=== PATIENT | female | born 1995 ===

== ENCOUNTER 2020-05-01 15:04 | Emergency (ER) | payer MEDICAID, SELFPAY ==
[2020-05-01 15:39] VITALS: BP 126/84; PULSE 77; RESP 16; TEMP 37.1; O2SAT 100; BMI 32.8
--- NOTE | 2020-05-01 16:30 | ED.GENADULT ---
HPI - General Adult General Chief complaint: General Medical Stated complaint: covid symptoms Time Seen by Provider: 05/01/20 16:30 History of Present Illness HPI narrative: Patient complains of 1 week of runny nose associated with loss of taste and smell, there is no cough no shortness of breath no fever Symptoms are mild and it has been 1 week duration and no prior treatment Related Data Allergies Allergy/AdvReac Type Severity Reaction Status Date / Time No Known Allergies Allergy Verified 05/01/20 15:42 [No Known Allergies*] Review of Systems Review of Systems: There is no headache no dizziness no confusion no cough no shortness breath no chest pain no abdominal pain no nausea no vomiting no diarrhea no rash no weakness Yes all other systems are reviewed and are negative PMFSH Past Medical History Source: nursing notes reviewed Medical History (Updated 05/01/20 @ 16:32 by NEAL Katz) No known health problems Social History Social History Alcohol intake: never Smoked in Last 30 Days: No Use of substances other than those prescribed or required for medical reasons: No Advance Directives: No Advance Directives Information Provided: Yes Physical Exam Vital Signs: Vital Signs: Last Vital Signs Temp 98.7 F 05/01/20 15:39 Pulse 77 05/01/20 15:39 Resp 16 05/01/20 15:39 BP 126/84 05/01/20 15:39 Pulse Ox 100 05/01/20 15:39 Body Mass Index 32.8 General appearance is A&O x3, comfortable, no acute distress, cooperative The eyes no redness no discharge The pharynx clear, well-hydrated no redness or exudate, voice is normal Neck is supple Chest clear to auscultation bilaterally, full equal symmetric breath sounds Heart no murmur Abdomen soft nontender Extremities no edema no tenderness Neuro no focal deficit Course Course Course Narrative: Patient was tested for COVID and advised that she very likely has COVID due to the decreased taste and smell Discharge Plan Discharge Clinical Impression: Acute viral syndrome Patient Disposition: Home, Self-Care Additional Instructions: You will get her COVID test results in 1-3 days, we will call you Return to ER any time any worse condition or concerns The COVID test can miss some cases and because you have no sense of taste or smell this is very likely a COVID infection so you may be contagious with COVID even if you have a negative test Interventions: ED Discharge Assessment Last Done: 05/01/20 17:42 Discharge Date/Time: 05/01/20 16:30
== END 2020-05-01 16:30 | disposition home or self-care (01) ==
PROVIDERS: Emergency Provider Emergency Medicine Emergency Medical Services; PCP Family Medicine
DX: B34.9 Viral infection, unspecified (principal); R43.8 Other disturbances of smell and taste; Z20.828 Contact with and (suspected) exposure to other viral communicable diseases
CPT/HCPCS: 99283; 99284; U0003

== ENCOUNTER 2021-01-20 14:33 | Outpatient (REF) | payer MEDICAID, SELFPAY ==
--- NOTE | ~2021-01-20 | XR_ITS ---
EXAMINATION: XR KNEE, LEFT CLINICAL INFORMATION: Injury. COMPARISON: 09/27/2017 TECHNIQUE: 4 views of the left knee. FINDINGS: There is no evidence of acute fracture or dislocation of the left knee. Left knee joint spaces are maintained. There is an exostosis/osteochondroma seen about the lateral aspect of the distal femoral bone at the metaphyseal-diaphyseal junction. No effusion. There is a rim calcified stable lucency seen within the proximal tibia. XR/XR knee LT 4V IMPRESSION: No acute change right knee. Stable exostosis of the distal femur. Stable benign-appearing lucency within the proximal tibia.
== END 2021-01-20 14:34 | disposition home or self-care (01) ==
LOC: HO.XRAY 14:33
PROVIDERS: PCP Family Medicine; Referring Provider Family Medicine; Visit Provider Emergency Medicine
DX: S89.92XA Unspecified injury of left lower leg, initial encounter (principal)
CPT/HCPCS: 73564

== ENCOUNTER 2022-04-02 13:02 | Emergency (ER) | payer MEDICAID, SELFPAY ==
--- NOTE | ~2022-04-02 | US_ITS ---
EXAMINATION: US OBSTETRICAL (BIOPHYSICAL PROFILE) CLINICAL INFORMATION: Decreased movement. 8 months . COMPARISON: None TECHNIQUE: Ultrasound of the pelvis is performed. Biophysical profile is performed over 30 minutes with assessment of breathing, gross body movement, tone, and qualitative amniotic fluid volume. Each matrix is scored 0 or 2, depending if the metric is present. Maximum total score possible is 8. Examination is not intended to assess for anomalies. FINDINGS: POSITION: Cephalic PLACENTA: Posterior. Grade 1-2 AMNIOTIC FLUID INDEX: 9.3 cm. 5th %ile for patient's gestational age is 7.7 cm. CARDIAC ACTIVITY: 172 beats per minute BIOPHYSICAL PROFILE: Motion: 2 Tone: 2 Breathin Amniotic Fluid: 2 Total score: 8 out of 8 US/US OB biophysical profile IMPRESSION: 1. Single intrauterine gestation in cephalic position with posterior placenta. 2. Total biophysical score is 8/8 (scale 0-8). 3. Amniotic fluid index 9.3 cm. 4. cardiac activity 172 beats per minute.
[2022-04-02 14:26] VITALS: BP 133/69; PULSE 86; RESP 18; TEMP 36.7; O2SAT 98; BMI 40.4
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
[2022-04-02 15:53] VITALS: BP 137/68; PULSE 72; RESP 18; TEMP 37; O2SAT 99
== END 2022-04-02 16:29 | disposition home or self-care (01) ==
PROVIDERS: Emergency Provider Student in an Organized Health Care Education/Training Program; PCP Family Medicine
DX: O26.93 Pregnancy related conditions, unspecified, third trimester (principal); Z3A.29 29 weeks gestation of pregnancy
CPT/HCPCS: 76819; 99282; 99284

== ENCOUNTER 2022-07-16 17:13 | Emergency (ER) | payer MEDICAID, SELFPAY ==
--- NOTE | 2022-07-16 17:24 | ED_ITS ---
HPI - General Adult General Chief complaint: Skin/Abscess/Foreign Body Stated complaint: Hives on neck, chest, abdominal region Time Seen by Provider: 07/16/22 17:30 Source: patient and block greaser Mode of arrival: ambulatory Limitations: language barrier History of Present Illness HPI narrative: Patient is a 27 year old assigned female at with no reported medical history presenting to the emergency department today with a rash to her neck, bilateral inner arms, and under her breasts. Patient states that a few days ago she developed an itchy rash to her bilateral inner arms, neck, and under both of her breasts. Patient denies any dizziness, lightheadedness, abdominal pain, nausea, vomiting, fever, chills, blurry vision, double vision, loss of vision, chest pain, difficulty breathing, shortness of breath, back pain, night sweats, pain with urination, increased urinary frequency, increased urinary urgency, blood in her urine or stool, syncope or a near syncopal episode, recent trauma or falls, bowel incontinence, bladder incontinence, bowel retention, bladder retention, or any other complaints at this time. Patient denies any environmental changes, soap changes, or recent medication use. Onset (ago): day(s) Severity: mild Severity scale (1-10): 2 Relieving factors: none Exacerbating factors: none Associated symptoms: rash Treatments prior to arrival: none Related Data Previous Rx's Medication Instructions Recorded prednisone 20 mg tablet 20 mg PO DAILY 7 days #7 tabs 07/16/22 Allergies Allergy/AdvReac Type Severity Reaction Status Date / Time No Known Allergies Allergy Verified 04/02/22 14:26 [No Known Allergies*] Review of Systems Constitutional: Constitutional: Reports no additional constitutional complaints, Denies chills, Denies fever(s) and Denies night sweats Eyes: Eyes: Reports no additional eye complaints, Denies blurry vision, Denies change in vision, Denies diplopia, Denies eye discharge, Denies loss of vision and Denies eye pain ENT: Denies dizziness Cardiovascular: Cardiovascular: Reports no additional cardiovascular complaints, Denies chest pain, Denies lightheadedness, Denies Loss of Consciousness and Denies dyspnea Respiratory: Respiratory: Reports no additional respiratory complaints and Den ies dyspnea Gastrointestinal: Gastrointestinal: Reports no additional gastrointestinal complaints, Denies abdominal pain, Denies melena, Denies hematochezia, Denies change in bowel habits and Denies change in stool character Genitourinary: Genitourinary: Denies hematuria, Denies urinary frequency, Denies dysuria, Denies urinary incontinence, Denies urinary hesitancy and Denies urinary urgency Musculoskeletal: Musculoskeletal: Reports no additional musculoskeletal complaints, Denies numbness and Denies tingling Integumentary/Breasts: Comments: itching rash to the bilateral neck, bilateral inner elbows, and under both breasts Neurologic: Denies dizziness, Denies loss of vision, Denies numbness and Denies tingling Psychiatric: Psychiatric: Reports no additional psychiatric complaints Endocrine: Endocrine: Reports no additional endocrine complaints Hematologic/Lymphatic: Hematologic/Lymphatic: Reports no additional hematologic/lymphatic complaints Allergic/Immunologic: Allergic/Immunologic: Reports no additional allergic/immunologic complaints [facility] Past Medical History Attestation statement: The following information was validated with the patient. Source: old records reviewed and nursing notes reviewed Medical History No known health problems Social History Social History Alcohol intake: never Advance Directives: No Advance Directives Information Provided: No Physical Exam ED Vital Signs: Vital Signs - 24 hr 07/16/22 17:27 Temperature 97.0 F Pulse Rate 69 Respiratory Rate 18 Blood Pressure 103/66 Pulse Oximetry 98 Oxygen Delivery Method Room Air BMI result Body Mass Index 44.2 Const General: cooperative, no acute distress, alert and awake Nutritional Appearance: well nourished Orientation/consciousness: patient oriented x3 Limitations: no limitations [facility] Head: Yes normal to inspection and Yes atraumatic Ears: hearing grossly normal bilaterally and external ears normal General nose exam: Normal external nose present, no nasal discharge noted and no epistaxis Face and sinus: Yes normal facial exam, No abrasion and No laceration Mouth: Normal oral and palatal mucosa present, no drooling and no muffled voice Eyes General: appearance normal, both eyes and all related structures Periorbital: periorbital findings normal Eyelids: Yes eyelids normal Conjunctivae: conjunctivae normal Pupils: Equal, round and reactive pupils present EOM: EOMs intact bilaterally Neck Neck: Yes normal visual inspection, Yes full ROM and Yes no lymphadenopathy Chest Chest palpation & inspection: normal inspection of the chest Resp Effort & Inspection: normal respiratory effort and able to speak in complete sentences Auscultation: clear to auscultation bilaterally Cardio Rate: regular rate Rhythm: regular rhythm GI Inspection: Yes normal to inspection Palpation (GI): Soft to palpation, not firm, nontender, no guarding and not rigid Skin Other: patient has eczematous rash to the bilateral sides of the neck, bilateral inner elbows, and under both breasts Neuro General: patient oriented x3 and moves all extremities Cranial nerves: Yes Equal, round and reactive pupils present Cognition (Neuro): normal cognition Motor exam (neuro): 5/5 motor strength present throughout Sensory Exam: Normal double simultaneous stimulation for sensation Coordination: [id number] test normal Extrem General: Yes normal to inspection, Yes full ROM and Yes capillary refill normal Psych Appearance: grossly normal Mental Status: mental status grossly normal Affect: normal affect Attitude: cooperative Thought process: Normal thought process present Thought content: Normal thought content present Insight: Good insight present (Psych) Medical Decision Making Medical Decision Making MDM Narrative: Patient is a 27 year old assigned female at with no reported medical history presenting to the emergency department today with a rash. Patient's physical exam showed a rash to the bilateral inner elbows, both sides of the neck, and under both breasts. I explained my physical exam findings to the patient. I answered all questions asked by the patient. I stressed the importance of the patient taking her medication as prescribed. I stressed the importance of the patient following up with her primary care provider. I stressed the importance of the patient returning to the emergency department immediately if her symptoms were to worsen or if she were to develop any dizziness, shortness of breath, difficulty breathing, chest pain, blurry vision, loss of vision, nausea, vomiting, abdominal pain, fever, chills, back pain, or any other complaints. Patient verbalized agreement and understanding with this treatment plan and discharge. Differential Diagnosis Differential Diagnoses: The differential diagnosis associated with the presentation includes eczema Discharge Plan Discharge Clinical Impression: Eczema Patient Disposition: Home, Self-Care Instructions: Dermatitis (ED) Additional Instructions: Follow up with your primary care provider and a media reconciliation specialist. Return to the emergency department immediately if your symptoms worsen or if you develop any dizziness, shortness of breath, difficulty breathing, chest pain, blurry vision, loss of vision, nausea, vomiting, abdominal pain, fever, chills, back pain, or any other complaints. Megan un seguimiento con baxter proveedor de atenci?n primaria y un dermat?logo. Regrese a la xavier de emergencias de inmediato si gloria s?ntomas empeoran o si presenta mareos, dificultad para respirar, dolor de pecho, visi?n borrosa, p?rdida de la visi?n, n?useas, v?mitos, dolor abdominal, fiebre, escalofr?os, dolor de espalda o cualquier otras quejas. Prescriptions: New prednisone 20 mg tablet 20 mg PO DAILY 7 Days Qty: 7 0RF Referrals: [facility] [Provider Group] (Call to establish and follow up with a media reconciliation specialist. Llame para establecer y hacer un seguimiento con un dermat?logo.) La Nena Alvarez MD [Primary Care Provider] - Interventions: ED Discharge Assessment Last Done: 07/16/22 17:32 Discharge Date/Time: 07/16/22 17:51 Print Language: [place]
[2022-07-16 17:27] VITALS: BP 103/66; PULSE 69; RESP 18; TEMP 36.1; O2SAT 98; BMI 44.2
== END 2022-07-16 17:51 | disposition home or self-care (01) ==
LOC: HO.ED 17:36
PROVIDERS: Emergency Provider Emergency Medicine; PCP General Practice
DX: L30.9 Dermatitis, unspecified (principal)
CPT/HCPCS: 99282; 99283

== ENCOUNTER 2022-08-07 12:01 | Emergency (ER) | payer MEDICAID, SELFPAY ==
--- NOTE | 2022-08-07 12:55 | ED_ITS ---
HPI - Headache General Chief Complaint: Upper Respiratory Symptoms Stated Complaint: head pressure sore throat Time Seen by Provider: 08/07/22 13:48 Related Data Previous Rx's Medication Instructions Recorded prednisone 20 mg tablet 20 mg PO DAILY 7 days #7 tabs 07/16/22 ibuprofen 600 mg tablet 600 mg PO Q6H PRN fever or pain 08/07/22 #20 tabs Allergies Allergy/AdvReac Type Severity Reaction Status Date / Time No Known Allergies Allergy Verified 04/02/22 14:26 [No Known Allergies*] [facility] Past Medical History Medical History No known health problems Social History Social History Alcohol intake: never Advance Directives: No Advance Directives Information Provided: No Physical Exam Vital Signs: Vital Signs: Last Vital Signs Temp 97.5 F 08/07/22 12:56 Pulse 78 08/07/22 12:56 Resp 16 08/07/22 12:56 BP 112/70 08/07/22 12:56 Pulse Ox 98 08/07/22 12:56 O2 Del Method 08/07/22 12:56 BMI result Body Mass Index 35.4 Course Course Course Narrative: This is rapid medical exam. Deferred additional HPI, ROS, PE to primary provider. 27 yo female here with headache, sore throat x 1 week. Will obtain strep testing, testing for flu/covid/rsv. VSS Medications Administered Discontinued Medications Generic Name Dose Route Start Last Admin Trade Name Freq PRN Reason Stop Dose Admin Dexamethasone 10 mg 08/07/22 14:52 08/07/22 15:01 Dexamethasone 2 Mg Tablet PO 08/07/22 14:53 10 mg ONCE ONE Administration Ibuprofen 600 mg 08/07/22 14:52 08/07/22 15:01 Ibuprofen 600 Mg Tablet PO 08/07/22 14:53 600 mg ONCE ONE Administration Medical Decision Making Lab Data Labs: Lab Results 08/07/22 08/07/22 Range/Units 13:20 13:20 Influenza Type A (PCR) NEGATIVE (Negative) Influenza Type B (PCR) NEGATIVE (Negative) RSV RNA Qual (PCR) NEGATIVE (Negative) SARS-CoV-2 RNA (RT-PCR) NEGATIVE (Negative) S. pyogenes GrpA JAVIER Negative (Negative) Discharge Plan Discharge Clinical Impression: Viral pharyngitis Patient Disposition: Home, Self-Care Additional Instructions: Testing was negative for flu COVID and strep We gave 1 dose of steroid which often helps throat pain and inflammation within 1 day Otherwise Tylenol or Motrin as needed Breathing steam, warm fluids, honey are all helpful for sore throat Return any time any worse condition or any concerns Prescriptions: New ibuprofen 600 mg tablet 600 mg PO Q6H PRN (Reason: fever or pain) Qty: 20 0RF No Action prednisone 20 mg tablet 20 mg PO DAILY 7 Days Qty: 7 0RF Interventions: ED Discharge Assessment Last Done: 08/07/22 15:03 Discharge Date/Time: 08/07/22 15:03
[2022-08-07 12:56] VITALS: BP 112/70; PULSE 78; RESP 16; TEMP 36.4; O2SAT 98; BMI 35.4
[2022-08-07 13:51] LABS: IDNOW Serial# 6674DD1D
[2022-08-07 13:52] LABS: Strep A Nucleic Acid Negative (Negative)
[2022-08-07 14:10] LABS: Influenza A PCR NEGATIVE (Negative); Influenza B PCR NEGATIVE (Negative); Resp Syncy Virus RNA Qual PCR NEGATIVE (Negative); SARS COV2 PCR INHOUSE NEGATIVE (Negative)
--- NOTE | 2022-08-07 14:53 | ED.URI ---
HPI - URI/Sore Throat General Chief Complaint: Upper Respiratory Symptoms Stated Complaint: head pressure sore throat Time Seen by Provider: 08/07/22 13:48 History of Present Illness HPI Narrative: Patient complains of sore throat, waxing and waning gradual onset mild headache, and some body aches over the last week Headache is intermittent and mild described as pressure it is gradual onset, no thunderclap, there is no associated weakness or confusion or vision change, no stiff neck no trauma The sore throat makes it painful to swallow but she is able to swallow and hydrate There is no nausea no vomiting no cough with sputum no chest pain no runny nose Related Data Previous Rx's Medication Instructions Recorded prednisone 20 mg tablet 20 mg PO DAILY 7 days #7 tabs 07/16/22 ibuprofen 600 mg tablet 600 mg PO Q6H PRN fever or pain 08/07/22 #20 tabs Allergies Allergy/AdvReac Type Severity Reaction Status Date / Time No Known Allergies Allergy Verified 04/02/22 14:26 [No Known Allergies*] [facility] Past Medical History Source: nursing notes reviewed Medical History No known health problems Social History Social History Alcohol intake: never Advance Directives: No Advance Directives Information Provided: No Physical Exam Vital Signs: Vital Signs: Last Vital Signs Temp 97.5 F 08/07/22 12:56 Pulse 78 08/07/22 12:56 Resp 16 08/07/22 12:56 BP 112/70 08/07/22 12:56 Pulse Ox 98 08/07/22 12:56 O2 Del Method 08/07/22 12:56 BMI result Body Mass Index 35.4 General appearance is no acute distress The eyes anicteric no pallor no redness no discharge The sinuses nontender, the nose is not congested The pharynx is clear without redness swelling or exudate, membranes are moist Neck is supple Chest clear to auscultation bilateral Heart no murmur Abdomen soft nontender Extremities full range of motion x4 Skin no rash Course Course Course Narrative: Patient tested negative for flu negative for RSV negative for COVID and negative for strep She is well appearing tolerating p.o. she is given a dose of steroid for her sore throat and Motrin and well-appearing patient tolerating p.o. is discharged Medical Decision Making Lab Data Labs: Lab Results 08/07/22 08/07/22 Range/Units 13:20 13:20 Influenza Type A (PCR) NEGATIVE (Negative) Influenza Type B (PCR) NEGATIVE (Negative) RSV RNA Qual (PCR) NEGATIVE (Negative) SARS-CoV-2 RNA (RT-PCR) NEGATIVE (Negative) S. pyogenes GrpA JAVIER Negative (Negative) Discharge Plan Discharge Clinical Impression: Viral pharyngitis Patient Disposition: Home, Self-Care Additional Instructions: Testing was negative for flu COVID and strep We gave 1 dose of steroid which often helps throat pain and inflammation within 1 day Otherwise Tylenol or Motrin as needed Breathing steam, warm fluids, honey are all helpful for sore throat Return any time any worse condition or any concerns Prescriptions: New ibuprofen 600 mg tablet 600 mg PO Q6H PRN (Reason: fever or pain) Qty: 20 0RF No Action prednisone 20 mg tablet 20 mg PO DAILY 7 Days Qty: 7 0RF
[2022-08-07] MEDS: dexAMETHasone 2 MG TABLET 10 MG PO (15:01)
[2022-08-07] MEDS: Ibuprofen 600 MG TABLET PO (15:01)
== END 2022-08-07 15:03 | disposition home or self-care (01) ==
PROVIDERS: Nurse Practitioner Family; Emergency Provider Emergency Medicine; PCP General Practice
DX: J02.9 Acute pharyngitis, unspecified (principal); Z20.822 Contact with and (suspected) exposure to COVID-19; Z20.828 Contact with and (suspected) exposure to other viral communicable diseases
CPT/HCPCS: 0241U; 87651; 99283; J8540

== ENCOUNTER 2022-08-29 16:32 | Emergency (ER) | payer MEDICAID, SELFPAY ==
--- NOTE | ~2022-08-29 | XR_ITS ---
EXAMINATION: XR KNEE, RIGHT CLINICAL INFORMATION: Pain COMPARISON: None TECHNIQUE: Four views of the right knee. FINDINGS: Bones and soft tissues are normal. No fracture or significant joint effusion. Alignment is anatomic. Joint spaces are well maintained. No abnormal soft tissue calcification. XR/XR knee RT 3V IMPRESSION: Normal right knee.
[2022-08-29 16:34] VITALS: BP 120/71; PULSE 95; RESP 18; TEMP 37.2; O2SAT 99; BMI 36.8
--- NOTE | 2022-08-29 16:36 | ED.EXTPRO ---
HPI - Extremity Problem General Chief complaint: Extremity Problem <NEAL Valle Last Filed: 08/29/22 16:37> Stated complaint: 3 wks w/ knee pain <NEAL Valle Last Filed: 08/29/22 16:37> Time Seen by Provider: 08/29/22 16:49 <NEAL Valle Last Filed: 08/29/22 16:37> Source: patient <NEAL Acevedo Last Filed: 08/29/22 18:12> Mode of arrival: ambulatory <NEAL Acevedo Last Filed: 08/29/22 18:12> History of Present Illness HPI Narrative: 27-year-old female with no significant past medical history presenting to the ED complaining of right knee pain x3 weeks. Reports remote history of trauma about 10 years ago, denies new or recent injury/fall. Pain worse with ambulation/movement. Denies numbness, tingling, weakness, fever <NEAL Acevedo Last Filed: 08/29/22 18:12> MD Complaint: extremity pain <NEAL Acevedo Last Filed: 08/29/22 18:12> Onset (ago): week(s) <NEAL Acevedo Last Filed: 08/29/22 18:12> Related Data Home medications: Previous Rx's Medication Instructions Recorded prednisone 20 mg tablet 20 mg PO DAILY 7 days #7 tabs 07/16/22 ibuprofen 600 mg tablet 600 mg PO Q6H PRN fever or pain 08/07/22 #20 tabs <NEAL Valle Last Filed: 08/29/22 16:37> Allergies/Adverse reactions: Allergies Allergy/AdvReac Type Severity Reaction Status Date / Time No Known Allergies Allergy Verified 04/02/22 14:26 [No Known Allergies*] <NEAL Valle Last Filed: 08/29/22 16:37> Review of Systems Review of Systems: Constitutional: No Fever, No Chills ENT/Mouth: No Ear Pain, No Nasal Congestion, No sore throat, No Rhinorrhea, No Swallowing Difficulty Cardiovascular: No Chest Pain, No SOB Respiratory: No Cough, No Sputum, No Wheezing Gastrointestinal: No Nausea, No Vomiting, No Diarrhea, No Constipation, No Abdominal pain Genitourinary: No Dysuria, No Urinary Frequency, No Hematuria, No Flank Pain Musculoskeletal: + joint pain, No Myalgias, + Joint Swelling Skin: No Skin Lesions, No rash Neuro: No Weakness, No Numbness, No Paresthesias <NAEL Acevedo - Last Filed: 08/29/22 18:12> Yes all other systems are reviewed and are negative <NEAL Acevedo - Last Filed: 08/29/22 18:12> Constitutional: Constitutional: Reports as per HPI <NEAL Acevedo - Last Filed: 08/29/22 18:12> [facility] Past Medical History Attestation statement: The following information was validated with the patient. <NEAL Acevedo - Last Filed: 08/29/22 18:12> Medical History: Medical History No known health problems <NEAL Valle - Last Filed: 08/29/22 16:37> Social History Social History: Social History Alcohol intake: never Advance Directives: No Advance Directives Information Provided: No <NEAL Valle - Last Filed: 08/29/22 16:37> Physical Exam Vital Signs: Vital Signs: Last Vital Signs Temp 98.9 F 08/29/22 16:34 Pulse 95 08/29/22 16:34 Resp 18 08/29/22 16:34 BP 120/71 08/29/22 16:34 Pulse Ox 99 08/29/22 16:34 O2 Del Method 08/29/22 16:34 BMI result Body Mass Index 36.8 <NEAL Valle - Last Filed: 08/29/22 16:37> Vital Signs: Last Vital Signs Temp 98.9 F 08/29/22 16:34 Pulse 95 08/29/22 16:34 Resp 18 08/29/22 16:34 BP 120/71 08/29/22 16:34 Pulse Ox 99 08/29/22 16:34 O2 Del Method 08/29/22 16:34 BMI result Body Mass Index 36.8 <NEAL Acevedo - Last Filed: 08/29/22 18:12> Const: General: cooperative, healthy appearing and no acute distress <NEAL Acevedo - Last Filed: 08/29/22 18:12> Orientation/consciousness: patient oriented x3 <NEAL Acveedo - Last Filed: 08/29/22 18:12> Limitations: no limitations <NEAL Acevedo - Last Filed: 08/29/22 18:12> HEENT: Head: Yes normal to inspection and Yes atraumatic <Alma Frazier PA - Last Filed: 08/29/22 18:12> Ears: hearing grossly normal bilaterally <NEAL Acevedo - Last Filed: 08/29/22 18:12> General nose exam: Normal external nose present <NEAL Acevedo - Last Filed: 08/29/22 18:12> Face and sinus: Yes normal facial exam <NEAL Acevedo - Last Filed: 08/29/22 18:12> Eyes: General: appearance normal, both eyes and all related structures <NEAL Acevedo - Last Filed: 08/29/22 18:12> EOM: EOMs intact bilaterally <NEAL Acevedo - Last Filed: 08/29/22 18:12> Neck: Neck: Yes normal visual inspection and Yes no meningeal signs <NEAL Acevedo - Last Filed: 08/29/22 18:12> Resp: Effort & Inspection: normal respiratory effort and no respiratory distress <NEAL Acevedo - Last Filed: 08/29/22 18:12> Cardio: Rate: regular rate <NEAL Acevedo - Last Filed: 08/29/22 18:12> Peripheral pulses: dorsalis pedis present <NEAL Acevedo - Last Filed: 08/29/22 18:12> Skin: Rashes: no rashes <NEAL Acevedo - Last Filed: 08/29/22 18:12> Wounds: no wounds <NEAL Acevedo - Last Filed: 08/29/22 18:12> Neuro: General: patient oriented x3, tone normal and no meningeal signs <NEAL Acevedo - Last Filed: 08/29/22 18:12> Gait exam (Neuro): Normal gait present <NEAL Acevedo Last Filed: 08/29/22 18:12> Extrem: Other: Right knee without noted deformity/swelling/erythema, warmth or ecchymosis. No crepitus. Diffusely tender to palpation. Limited flexion secondary to pain. Extension intact. Neurovascular intact distally. <NEAL Acevedo - Last Filed: 08/29/22 18:12> General: Yes normal to inspection <NEAL Acevedo Last Filed: 08/29/22 18:12> Course Course Course Narrative: RME - 27 y/o female presents to the ER for evaluation of 3 weeks of nontraumatic right knee pain, that has been getting worse causing her to limp. It is causing her to have back pain as well. Entire knee hurts. No posterior knee pain or leg swelling. Plan: Xr right knee <NEAL Vlale - Last Filed: 08/29/22 16:37> RME - 27 y/o female presents to the ER for evaluation of 3 weeks of nontraumatic right knee pain, that has been getting worse causing her to limp. It is causing her to have back pain as well. Entire knee hurts. No posterior knee pain or leg swelling. Plan: Xr right knee 1804--XR knee RT 3V IMPRESSION: Normal right knee. > Dale wrap applied for comfort and stability. Patient not currently . Recommended PCP/orthopedic follow-up Results discussed with patient including worrisome signs and symptoms and strict return precautions, and when to return to the emergency department. They verbalized understanding and feel safe for discharge at this time. <NEAL Acevedo Last Filed: 08/29/22 18:12> Medical Decision Making Medical Decision Making MDM Narrative: 27-year-old female with no significant past medical history presenting to the ED complaining of right knee pain x3 weeks. On exam vital signs stable, ambulating with antalgic gait, physical exam as above. Concern for sprain vs meniscal/tendon or ligamental injury. Low suspicion for fracture. No evidence of septic joint/arthritis Plan: X-rays Please refer to course for remaining clinical decision making, interpretation of labs/imaging results, and discussions with consultants and/or family members. <NEAL Acevedo - Last Filed: 08/29/22 18:12> Differential Diagnosis Differential Diagnoses: The differential diagnosis associated with the presentation includes <NEAL Acevedo - Last Filed: 08/29/22 18:12> As above <NEAL Acevedo - Last Filed: 08/29/22 18:12> Admission/Observation Consideration of admission/observation: Escalation of care including admission/observation considered <NEAL Acevedo - Last Filed: 08/29/22 18:12> Lab Data MDM Lab Attestation statement: I reviewed the patient's lab results. <NEAL Acevedo - Last Filed: 08/29/22 18:12> Radiology Impression Discussion of test interpretation with radiology: I have reviewed the radiologist's reading. <NEAL Acevedo - Last Filed: 08/29/22 18:12> External Record Review External record reviewed: Inpatient record, Office record, Outpatient record, Prior outpatient labs, Prior outpatient radiology, Primary care record and Outside ED record <NEAL Acevedo - Last Filed: 08/29/22 18:12> Discharge Plan Discharge Clinical Impression: Acute knee pain <NEAL Valle - Last Filed: 08/29/22 16:37> Patient Disposition: Home, Self-Care <NEAL Valle - Last Filed: 08/29/22 16:37> Instructions: Knee Pain (ED) <NEAL Valle - Last Filed: 08/29/22 16:37> Additional Instructions: Your x-ray is unremarkable Wear Dale wrap as needed for comfort and stability Ice and elevate. Naproxen as an anti-inflammatory/pain medication, take with food Addition take Tylenol Follow-up with her doctor and Orthopedics <NEAL Valle - Last Filed: 08/29/22 16:37> Prescriptions: No Action prednisone 20 mg tablet 20 mg PO DAILY 7 Days Qty: 7 0RF ibuprofen 600 mg tablet 600 mg PO Q6H PRN (Reason: fever or pain) Qty: 20 0RF <NEAL Valle - Last Filed: 08/29/22 16:37> Referrals: [facility] [Provider Group] La Nena Alvarez MD [Primary Care Provider] - <NEAL Valle - Last Filed: 08/29/22 16:37>
--- NOTE | 2022-08-29 18:02 | MHC.EDTECH ---
Brought patient sandwich and apple juice.
== END 2022-08-29 18:45 | disposition home or self-care (01) ==
PROVIDERS: Emergency Provider Emergency Medicine; PCP General Practice
DX: M25.561 Pain in right knee (principal)
CPT/HCPCS: 73562; 99282

== ENCOUNTER 2023-01-05 14:44 | Outpatient (REF) | payer MEDICAID, SELFPAY ==
[2023-01-05 17:03] LABS: HCG Quantitative < 2 mIU/mL
== END 2023-01-05 14:45 | disposition home or self-care (01) ==
LOC: HO.HHCL 14:44
PROVIDERS: Visit Provider Internal Medicine
DX: N92.6 Irregular menstruation, unspecified (principal)
CPT/HCPCS: 36415; 84702

== ENCOUNTER 2023-03-24 15:11 | Outpatient (REF) | payer MEDICAID, SELFPAY | END 2023-03-24 15:12 | disposition home or self-care (01) | LOC: HO.HHCX 15:11 | PROVIDERS: Visit Provider Student in an Organized Health Care Education/Training Program | DX: R22.42 Localized swelling, mass and lump, left lower limb (principal) | CPT/HCPCS: 73610 ==

== ENCOUNTER 2023-05-25 14:02 | Outpatient (REF) | payer MEDICAID, SELFPAY ==
--- NOTE | ~2023-05-25 | US_ITS ---
EXAMINATION: US EXTREMITY NONVASCULAR, LEFT CLINICAL INFORMATION: Soft tissue mass posterior to the ankle COMPARISON: Ankle radiographs 03/24/2023 TECHNIQUE: Sonographic evaluation of the soft tissues of the left posterior ankle was performed. FINDINGS: A 4 x 6.2 x 1 cm complex collection of fluid and soft tissue which appears to be contiguous with the tendon, presumed to reflect the Achilles tendon. US/US extremity nonvascular IMPRESSION: A 6.2 cm complex collection of fluid and soft tissue which appears to be contiguous with the tendon, presumed to reflect the Achilles tendon. This could reflect a complex fluid collection such as a hematoma in the setting of underlying Achilles tendon injury/tendinitis in the appropriate clinical setting, though a complex mixed cystic and solid mass could have this appearance. Recommend correlation with contrast-enhanced MR ankle.
== END 2023-05-25 14:03 | disposition home or self-care (01) ==
LOC: HO.US 14:02
PROVIDERS: PCP General Practice; Visit Provider Student in an Organized Health Care Education/Training Program
DX: R22.42 Localized swelling, mass and lump, left lower limb (principal)
CPT/HCPCS: 76882

== ENCOUNTER 2023-07-16 23:37 | Emergency (ER) | payer MEDICAID, SELFPAY ==
--- NOTE | ~2023-07-16 | CT_ITS ---
EXAMINATION: CT ABDOMEN AND PELVIS WITH CONTRAST CLINICAL INFORMATION: Right-sided tenderness, nausea/vomiting COMPARISON: 06/07/2017 TECHNIQUE: Multidetector volumetric images were obtained from the superior aspect of the liver through the pubic symphysis following administration 85 mL of Omnipaque 350 intravenous contrast. Sagittal and coronal reformatted images were obtained on the technologist's workstation. Oral contrast: No This CT examination was performed using dose optimization techniques as appropriate, variously including the following: *Automated exposure control *Adjustment of mA and/or kV according to patient size (this includes techniques or standardized protocols for targeted exams where dose is matched to indication/reason for exam; i.e. extremities or head) *Use of iterative reconstruction technique DLP: 570 mGy-cm FINDINGS: LUNG BASES: The visualized lung bases are unremarkable. LIVER, GALLBLADDER, AND BILIARY TREE: The liver is normal in size, shape, and attenuation. A small focal region of hypoattenuation adjacent to the falciform ligament could be due to focal fatty infiltration or alterations in hepatic perfusion. No intrahepatic biliary ductal dilatation. Gallbladder appears partially contracted. Low-density gallstones are suspected. No significant gallbladder wall thickening is seen though assessment is suboptimal on CT. PANCREAS: Unremarkable. SPLEEN: Unremarkable. ADRENAL GLANDS: Unremarkable. KIDNEYS AND URETERS: Bilateral nephrograms are symmetric. No hydronephrosis or obstructing calculus identified. BLADDER: Mildly distended and grossly unremarkable. GASTROINTESTINAL TRACT: No evidence of bowel obstruction. No significant bowel wall thickening is seen. Fluid is present within some segments of the colon, a finding which can be associated with diarrhea. Appendix is suspected to be collapsed. Trace pelvic free fluid noted. No free air is seen. ABDOMINAL WALL: No significant hernia is appreciated. LYMPH NODES: Normal. VASCULAR: Unremarkable. PELVIC VISCERA: Unremarkable. OSSEOUS STRUCTURES: Screws are redemonstrated in the intertrochanteric region of the right femur with adjacent heterotopic ossification. There is also heterotopic ossification adjacent to the proximal left femoral shaft. Degenerative changes of the hips. CT/CT abdomen pelvis w IV con IMPRESSION: 1. Low-density gallstones are suspected. No significant gallbladder wall thickening is seen, though assessment is suboptimal on CT. Given the reported right upper quadrant pain, further evaluation with ultrasound is recommended. 2. Fluid within some segments of the colon, a finding which can be associated with diarrhea. No evidence of bowel obstruction. 3. Trace nonspecific pelvic free fluid.
[2023-07-16 23:56] VITALS: BP 121/62; PULSE 89; RESP 14; TEMP 36.5; O2SAT 99
[2023-07-17 00:03] VITALS: BP 121/62; BP 128/84; PULSE 89; PULSE 96; RESP 16; TEMP 36.5; O2SAT 99; BMI 32.8
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
[2023-07-17 00:45] LABS: MANUAL DIFF FLAG NO
[2023-07-17 00:46] LABS: Basophils Percent Auto 0.2 % (0-2); Eosinophils Absolute Auto 0.1 X10*3/uL (0.0-0.4); Eosinophils Percent Auto 0.6 % (0-4); Hematocrit 39.9 % (37.0-47.0); Hemoglobin 13.6 g/dl (12.0-16.0); Imm Gran Abs Auto 0.04 X10*3/uL (0.00-0.03); Imm Gran Pct Auto 0.4 % (0.0-0.4); Lymphocytes Absolute Auto 1.2 X10*3/uL (1.2-4.9); Lymphocytes Percent Auto 13.2 % (20-40); Mean Corpuscular HGB Conc 34.1 g/dl (31.0-35.0); Mean Corpuscular Hemoglobin 28.5 pg (27.0-33.0); Mean Corpuscular Volume 83.5 fL (80.0-98.0); Mean Platelet Volume 8.5 fL (9.4-12.3); Monocytes Absolute Auto 0.7 X10*3/uL (0.1-1.2); Neutrophils Percent Auto 77.6 % (45-73); Platelet Count 235 X10*3/uL (160-400); Red Blood Count 4.78 X10*6/uL (4.20-5.50)
[2023-07-17 00:54] LABS: Partial Thromboplastin Time 30.5 SEC (26.0-36.4)
[2023-07-17 00:56] LABS: COVID-19 Test Negative (Negative); IDNOW Serial# 08D9AD1C; IDNOW Serial# 152EDE1D; Influenza A Negative (Negative); Influenza B2 Negative (Negative)
[2023-07-17] MEDS: Morphine Sulfate 4 MG/ML CARTRIDGE IVPUSH ×3 (00:59→07:46)
[2023-07-17] MEDS: ondansetron HCL 4 MG/2 ML VIAL IVPUSH ×2 (00:59→03:44)
[2023-07-17] MEDS: 0.9 % Sodium Chloride 1,000 ML 999 ML IV ×2 (00:59→03:44)
--- NOTE | 2023-07-17 01:03 | PC.NURSE ---
20g IV placed in the left AC. Labs collected and sent. Pt medicated per AUG. Pt has been on the phone with her boyfriend, speaking rapidly. Pt is intermittently crying. Pt waiting lab results to get CT scan
[2023-07-17 01:07] LABS: Alanine Aminotransferase 16 U/L (0-31); Albumin Level 4.4 g/dL (3.5-5.0); Alkaline Phosphatase 84 U/L (39-117); Anion Gap 15 (12-20); Aspartate Amino Transferase 21 U/L (5-31); Bilirubin Total 0.3 mg/dL (0.0-1.0); Blood Urea Nitrogen 14 mg/dL (9-16); Calcium 9.8 mg/dL (8.4-10.2); Carbon Dioxide 22 mmol/L (22-29); Chloride 107 mmol/L (96-108); Creatinine Clr Calc Pharmacy 118.2; Estimated Glomerular Filt Rate > 60; Glucose Random 88 mg/dL (60-115); Lipase 16 U/L (8-78); Sodium 140 mmol/L (135-145); Total Protein 7.8 g/dL (6.5-8.0)
[2023-07-17 01:12] LABS: HCG Quantitative < 2 mIU/mL
[2023-07-17] MEDS: iohexoL 350 MG/ML 100 ML INFUS..BTL 85 ML IV (01:51)
[2023-07-17 02:16] VITALS: BP 117/66; PULSE 77; RESP 16; TEMP 36.6; O2SAT 100
--- NOTE | 2023-07-17 03:12 | PC.NURSE ---
Pt ambulated to bathroom independently, reported she feels much better than when she came in, but still doesn't feel good.
[2023-07-17 03:15] LABS: Appearance Urine Clear; Color Urine Yellow; Glucose Urine UA Negative (Negative); Leukocyte Esterase Urine Negative (Negative); Nitrite Urine Negative (Negative); Specific Gravity - Urine >= 1.030 (1.005-1.025); Urine Blood Negative (Negative); Urine Ketones Trace mg/dL (Negative); Urine Protein Negative (Neg-Trace)
[2023-07-17] MEDS: Ketorolac Tromethamine 15 MG/ML VIAL IVPUSH (03:44)
[2023-07-17 04:22] VITALS: BP 125/69; PULSE 87; RESP 18; TEMP 36.4; O2SAT 100
[2023-07-17 06:14] VITALS: BP 119/84; PULSE 84; RESP 18; TEMP 36.7; O2SAT 100
[2023-07-17 07:46] VITALS: RESP 20
--- NOTE | 2023-07-17 08:07 | PC.NURSE ---
Patient reports called to pick her up, states can not be here until 10am
--- NOTE | 2023-07-17 10:17 | PC.NURSE ---
PT C/O NAUSEA, MED WITH ZOFRAN.
[2023-07-17] MEDS: Ondansetron ODT 4 MG TAB.RAPDIS TRANSLINGU (10:27)
== END 2023-07-17 10:49 | disposition home or self-care (01) ==
PROVIDERS: Emergency Provider Emergency Medicine Emergency Medical Services; PCP General Practice
DX: K80.20 Calculus of gallbladder without cholecystitis without obstruction (principal); R11.2 Nausea with vomiting, unspecified; R10.30 Lower abdominal pain, unspecified; R19.7 Diarrhea, unspecified; Z11.52 Encounter for screening for COVID-19; Z79.899 Other long term (current) drug therapy
CPT/HCPCS: 36415; 74177; 80053; 81003; 83690; 84702; 85025; 85730; 87502; 87635; 96361; 96374; 96375; 96376; 99285; J1885; J2270; J2405; Q9967

== ENCOUNTER 2023-08-18 14:58 | Outpatient (REF) | payer MEDICAID, SELFPAY ==
[2023-08-18 17:06] LABS: TSH reflex Free T4 1.47 uIU/mL (0.32-4.0)
== END 2023-08-18 14:59 | disposition home or self-care (01) ==
LOC: HO.HHCL 14:58
PROVIDERS: Visit Provider General Practice
DX: N92.6 Irregular menstruation, unspecified (principal)
CPT/HCPCS: 36415; 84443

== ENCOUNTER 2023-12-01 14:05 | Outpatient (REF) | payer MEDICAID, SELFPAY ==
--- NOTE | ~2023-12-01 | CT_ITS ---
EXAMINATION: CT KNEE WITHOUT CONTRAST, LEFT CLINICAL INFORMATION: Left knee pain. Femoral ORIF 15 years ago. COMPARISON: Most recent left knee radiographs dated 01/20/2021. TECHNIQUE: Contiguous axial CT images of the left knee were obtained without contrast. Multiplanar reformats were provided and reviewed. This CT examination was performed using dose optimization techniques as appropriate, variously including the following: *Automated exposure control *Adjustment of mA and/or kV according to patient size (this includes techniques or standardized protocols for targeted exams where dose is matched to indication/reason for exam; i.e. extremities or head) *Use of iterative reconstruction technique DLP: 133 mGy-cm FINDINGS: No acute fracture or dislocation. Normal patellofemoral alignment. Screw tract with mild cortical irregularity along the lateral aspect of the distal femoral metaphysis consistent with prior hardware. No persistent hardware in this region. [id number] medial compartment joint space narrowing with minimal subchondral sclerosis. Tiny tricompartmental marginal osteophytes. No concerning lytic or blastic osseous lesion. No evidence of avascular necrosis. No significant joint effusion. No abnormal soft tissue mass or fluid collection. Scarring with dystrophic calcification noted within the anteromedial and anterolateral soft tissues. The visualized flexor and extensor muscles and tendons are grossly intact, however, evaluation significantly limited on CT examination. CT/CT knee LT wo IV con IMPRESSION: 1. No acute fracture or dislocation. 2. [id number] medial compartment osteoarthritis. 3. Screw tract along the lateral aspect of the distal femoral metaphysis consistent with prior hardware. No persistent hardware in this region. 4. Scarring with dystrophic calcification within the anteromedial and anterolateral soft tissues.
== END 2023-12-01 14:06 | disposition home or self-care (01) ==
LOC: HO.CT 14:05
PROVIDERS: PCP Internal Medicine; Visit Provider Internal Medicine
DX: M17.32 Unilateral post-traumatic osteoarthritis, left knee (principal)
CPT/HCPCS: 73700

== ENCOUNTER 2023-12-05 07:54 | Outpatient (REF) | payer MEDICAID, SELFPAY ==
--- NOTE | ~2023-12-05 | XR_ITS ---
EXAMINATION: XR KNEE, LEFT CLINICAL INFORMATION: Left knee pain. COMPARISON: CT dated 12/01/2023 TECHNIQUE: AP view of both knees and sunrise and lateral view of the left knee FINDINGS: Mild osteoarthritis in the left knee is characterized by marginal osteophytes and subarticular cortical irregularity, most notably in the medial compartment. No significant joint effusion. No fracture or malalignment. Ghost tracks are evident within the distal femur and tibial plateau. Imaged portion of the right knee is unremarkable on the single AP view. XR/XR knee LT 3V IMPRESSION: Mild osteoarthritis in the left knee, most notably in the medial compartment.
== END 2023-12-05 07:55 | disposition home or self-care (01) ==
LOC: HO.HOSX 07:54
PROVIDERS: Visit Provider Orthopaedic Surgery
DX: M17.32 Unilateral post-traumatic osteoarthritis, left knee (principal); T14.90XS Injury, unspecified, sequela
CPT/HCPCS: 73562; 99202

== ENCOUNTER 2023-12-05 11:01 | Outpatient (AMB) | payer MEDICAID, SELFPAY ==
--- NOTE | 2023-12-05 11:12 | MHC.OFFVIS ---
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 She was seen on 11/08/23 at [facility] walk-in center clinic for this. Patient reports she was walking down the side walk about three weeks ago when her knee gave out causing her to fall and land on her left knee. She expresses she has been having pain on the anterior ascpect of her right knee on and off for about 2 years due a history of repeated falls and trauma to both her knees. She reports weakness when she ambulates. 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 She was seen on 11/08/23 at [facility] walk-in center clinic for this. Patient reports she was walking down the side walk about three weeks ago when her knee gave out causing her to fall and land on her left knee. She expresses she has been having pain on the anterior ascpect of her right knee on and off for about 2 years due a history of repeated falls and trauma to both her knees. She reports weakness when she ambulates. [facility] Medical History No known health problems Social History (Updated 12/05/23 @ 11:21 by AYALA Marc) Household Members Other:: Boyfriend Housing: Homeless Alcohol intake: never Patient Tobacco Use Status: Current everyday Tobacco user Tobacco use type: Cigarette Substance Use Type: Marijuana Current occupational status: unemployed Physical Exam Vital Signs: BMI result Body Mass Index 28.0 Const General: cooperative, healthy appearing, no acute distress, well developed and alert HEENT Head: Yes normal to inspection, Yes normocephalic and Yes atraumatic Mouth: moist mucous membranes Eyes General: appearance normal, both eyes and all related structures EOM: EOMs intact bilaterally Chest Other: no audible wheezing. Resp Other: No audible wheezing Effort & Inspection: normal respiratory effort Back/Spine/Pelvis Cervical Spine: normal cervical lordosis Skin General skin exam: no rashes or lesions noted Neuro General: no focal motor deficits Extrem Other: On exam she has global mild left knee tenderness to palpation. Stable to varus and valgus stress with full range of motion. Psych Appearance: grossly normal and well kempt Mental Status: mental status grossly normal Speech and movement: Normal speech and movement present Affect: normal affect Attitude: cooperative Results Reviewed Results Reviewed: I personally reviewed relevant radiographs. Arthritic changes Evidence of prior surgery left knee with mild arthritic changes CT scan of the left knee shows: [id number] medial compartment osteoarthritis. Screw tract along the lateral aspect of the distal femoral metaphysis consistent with prior hardware. No persistent hardware in this region. Scarring with dystrophic calcification within the anteromedial and anterolateral soft tissues. Assessment & Plan Assessment & Plan (1) Post-traumatic osteoarthritis of left knee: Code(s): M17.32 - Unilateral post-traumatic osteoarthritis, left knee Category: Medical Plan: This is a 28-year-old with posttraumatic osteoarthritis of the left knee. Overall her function is good and her pain is minimal. I recommend she remain active. There is no orthopedic intervention warranted at this time. Orders: Orders XR knee LT 3V 12/05/23 M25.562 - Pain in left knee Medications: Discontinued prednisone Discontinued Reason: Patient no longer taking 20 mg PO DAILY 7 days 7 tabs 0RF ondansetron Discontinued Reason: Patient no longer taking 4 mg PO Q6-8H PRN 14 tabs 0RF nausea and vomiting Coding Level of Care Code New Pt Level 3 (76569) Diagnoses Post-traumatic osteoarthritis of left knee M17.32
[2023-12-05 11:13] VITALS: BMI 28.0
== END 2023-12-05 11:46 | disposition home or self-care (01) ==
PROVIDERS: PCP General Practice; Visit Provider Orthopaedic Surgery
DX: M17.32 Unilateral post-traumatic osteoarthritis, left knee (principal)
CPT/HCPCS: 99204

== ENCOUNTER 2024-02-01 13:21 | Emergency (ER) | payer MEDICAID, SELFPAY ==
--- NOTE | 2024-02-01 13:37 | PC.NURSE ---
No call to name x 1 at 13:38.
[2024-02-01 14:00] VITALS: BP 100/59; PULSE 68; RESP 16; TEMP 37.1; O2SAT 98; BMI 26.3
--- NOTE | 2024-02-01 14:06 | ED.GENADULT ---
HPI - General Adult General Stated complaint: pain in leg, headache Time Seen by Provider: 02/01/24 14:05 Source: patient Mode of arrival: ambulatory Limitations: no limitations History of Present Illness ED Provider: Jeanine ALLAN HPI narrative: 28-year-old female history of homelessness and denies past medical history presenting to the emergency department concerned she may have cancer she reports she had labs done at the [facility] her they were abnormal and they told her that she may have cancer. Patient then went to [facility] where she was told that they were unable to identify cancer. She tells me she was seen in the emergency room she had basic labs and they told her to follow-up. Patient tells me she is homeless she has no primary care provider no laborer laboratory oncologist. She reports complaints that have been going on for years such as body aches and pains, hair loss, changes in hair in general, fatigue, malaise, myalgias however nothing new. Denies chest pain, shortness of breath, nausea, vomiting, abdominal pain, vision changes, dizziness and weakness. She would just like some guidance and that is why she came in today. Related Data Home Medications ?Medication ?Instructions ?Recorded ?Confirmed melatonin 5 mg tablet 10 mg PO BEDTIME PRN insomnia 12/05/23 Previous Rx's ?Medication ?Instructions ?Recorded ibuprofen 600 mg tablet 600 mg PO Q6H PRN fever or pain 08/07/22 #20 tabs acetaminophen 500 mg tablet 500 mg PO Q6H PRN fever or pain 08/29/22 (Tylenol Extra Strength) #14 tabs naproxen 500 mg tablet 500 mg PO BID PRN pain 10 days #20 08/29/22 tabs ibuprofen 400 mg tablet 400 mg PO TID PRN fever or pain 07/17/23 #30 tabs morphine 15 mg immediate release 15 mg PO Q6H PRN pain #8 tabs 07/17/23 tablet Allergies Allergy/AdvReac Type Severity Reaction Status Date / Time No Known Allergies Allergy Verified 12/05/23 11:13 [No Known Allergies*] Review of Systems Review of Systems: Yes all other systems are reviewed and are negative PMFSH Past Medical History Attestation statement: The following information was validated with the patient. Source: old records reviewed and nursing notes reviewed Medical History No known health problems Social History Social History (Updated 12/05/23 @ 11:21 by AYALA Marc) Household Members Other:: Boyfriend Housing: Homeless Alcohol intake: never Patient Tobacco Use Status: Current everyday Tobacco user Tobacco use type: Cigarette Substance Use Type: Marijuana Current occupational status: unemployed Physical Exam ED Vital Signs: vss Appearance: Alert.? Oriented X3.? No acute distress.? Head: Normocephalic, atraumatic, no step-offs or deformities Eyes: Pupils equal, round and reactive to light.? Neck: Normal inspection.? Neck supple.? CVS: Normal heart rate and rhythm.? Pulses normal.? Respiratory: No respiratory distress.? Breath sounds normal.? Abdomen: Soft and nontender.? Skin: Skin warm and dry.? Normal skin color.? Normal skin turgor.? Extremities: No lower extremity edema.? No calf ttp. 5/5 strength to bilateral upper and lower extremities Neuro: Oriented X 3.? No motor deficit.? No sensory deficit. CN 2-12 intact Medical Decision Making Medical Decision Making [facility] Narrative: 28-year-old female presents requesting labs because she thinks she has cancer. Physical exam benign History and physical exam concerning for poor health follow-up, anxiety, follow-up for abnormal labs. No acute symptoms to follow-up here today. This is more appropriate for a primary care provider or laborer laboratory oncologist. Offered patient basic labs Differential Diagnosis Differential Diagnoses: The differential diagnosis associated with the presentation includes History and physical exam concerning for poor health follow-up, anxiety, follow-up for abnormal labs. No acute symptoms to follow-up here today. This is more appropriate for a primary care provider or laborer laboratory oncologist Admission/Observation Consideration of admission/observation: Escalation of care including admission/observation considered Lab Data [facility] Lab Attestation statement: I reviewed the patient's lab results. External Record Review External record reviewed: Office record, Outpatient record and Prior outpatient labs Social Determinants Patient?s care significantly limited by Social Determinants of Health including: Inadequate housing, Low income, Alcoholism and drug addiction in family, Problems related to primary support group, Unemployment, Problems related to employment and Other Social Determinant of Health Critical Care Time Critical Care Time Critical Care Time: No Discharge Plan Discharge Clinical Impression: Routine lab draw Patient Disposition: Home, Self-Care Additional Instructions: Take your medications as prescribed. If you were prescribed antibiotics today, it is important that you take your medication to their entirety, do not skip any doses, do not finish them early. Follow-up with your primary care provider this week. Return to the emergency department with new or worsening symptoms. Such as fevers, chills, chest pain, shortness of breath, nausea, vomiting, dizziness, headache, vision changes, lethargy In case of emergency call 911 Prescriptions: No Action acetaminophen [Tylenol Extra Strength] 500 mg tablet 500 mg PO Q6H PRN (Reason: fever or pain) Qty: 14 0RF naproxen 500 mg tablet 500 mg PO BID PRN (Reason: pain) 10 Days Qty: 20 0RF ibuprofen 600 mg tablet 600 mg PO Q6H PRN (Reason: fever or pain) Qty: 20 0RF ibuprofen 400 mg tablet 400 mg PO TID PRN (Reason: fever or pain) Qty: 30 0RF morphine 15 mg tablet 15 mg PO Q6H PRN (Reason: pain) Qty: 8 0RF Rx Instructions: The patient may ask for partial fill; Partial Fill upon patient request. melatonin 5 mg tablet 10 mg PO BEDTIME PRN (Reason: insomnia) Referrals: [facility] [place] Family Medicine [Provider Group] - 1 day [facility] [place] Primary CareLatesha [Provider Group] - 1 day [facility] – [place] Primary CareSudhakar [Provider Group] - 1 day [facility] [place] [facility] [place] Oncology/Hematology [Provider Group] - 1 day Print Language: Irish
[2024-02-01 14:14] LABS: MANUAL DIFF FLAG NO
[2024-02-01 14:16] LABS: Basophils Percent Auto 0.6 % (0-2); Eosinophils Absolute Auto 0.1 X10*3/uL (0.0-0.4); Eosinophils Percent Auto 1.1 % (0-4); Hemoglobin 12.6 g/dl (12.0-16.0); Imm Gran Abs Auto 0.03 X10*3/uL (0.00-0.03); Imm Gran Pct Auto 0.4 % (0.0-0.4); Lymphocytes Absolute Auto 2.1 X10*3/uL (1.2-4.9); Lymphocytes Percent Auto 29.4 % (20-40); Mean Corpuscular HGB Conc 33.2 g/dl (31.0-35.0); Mean Corpuscular Hemoglobin 29.4 pg (27.0-33.0); Mean Corpuscular Volume 88.6 fL (80.0-98.0); Mean Platelet Volume 8.3 fL (9.4-12.3); Monocytes Absolute Auto 0.7 X10*3/uL (0.1-1.2); Monocytes Percent Auto 10.2 % (2-11); Neutrophils Absolute Auto 4.1 x10*3/uL (2.0-8.3); Neutrophils Percent Auto 58.3 % (45-73); Platelet Count 253 X10*3/uL (160-400); Red Blood Count 4.29 X10*6/uL (4.20-5.50); Red Cell Distribution Width 13.2 % (11.0-16.0)
[2024-02-01 14:38] LABS: Alanine Aminotransferase 15 U/L (0-31); Albumin Level 4.2 g/dL (3.5-5.0); Alkaline Phosphatase 70 U/L (39-117); Anion Gap 10 (12-20); Aspartate Amino Transferase 19 U/L (5-31); Bilirubin Total 0.4 mg/dL (0.0-1.0); Blood Urea Nitrogen 13 mg/dL (9-16); Calcium 9.7 mg/dL (8.4-10.2); Carbon Dioxide 29 mmol/L (22-29); Chloride 105 mmol/L (96-108); Creatinine Clr Calc Pharmacy 109.1; Estimated Glomerular Filt Rate > 60; Glucose Random 85 mg/dL (60-115); Lipase 17 U/L (8-78); Potassium 4.4 mmol/L (3.3-5.1); Sodium 140 mmol/L (135-145); Total Protein 7.1 g/dL (6.5-8.0)
[2024-02-01 14:39] LABS: HCG Quantitative < 2 mIU/mL
== END 2024-02-01 14:21 | disposition home or self-care (01) ==
LOC: HO.ED 14:14
PROVIDERS: Physician Assistant; Emergency Provider Emergency Medicine; PCP Internal Medicine
DX: M79.606 Pain in leg, unspecified (principal); R79.89 Other specified abnormal findings of blood chemistry; F17.210 Nicotine dependence, cigarettes, uncomplicated; Z79.899 Other long term (current) drug therapy; Z59.00 Homelessness unspecified
CPT/HCPCS: 36415; 80053; 83690; 84702; 85025; 99281; 99283

== ENCOUNTER 2024-03-20 11:25 | Outpatient (AMB) | payer MEDICAID, SELFPAY ==
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
== END 2024-03-20 12:14 | disposition home or self-care (01) ==
PROVIDERS: PCP Internal Medicine; Visit Provider Surgery Vascular Surgery
DX: I83.12 Varicose veins of left lower extremity with inflammation (principal)
CPT/HCPCS: 99204

== ENCOUNTER → 2024-03-20 11:25 | Outpatient (BNVA) | payer MEDICAID, SELFPAY | PROVIDERS: PCP Internal Medicine; Visit Provider Surgery Vascular Surgery | DX: I83.12 Varicose veins of left lower extremity with inflammation (principal); R60.0 Localized edema | CPT/HCPCS: 99202 ==

== ENCOUNTER 2024-05-23 13:32 | Emergency (ER) | payer MEDICAID, SELFPAY ==
[2024-05-23 13:35] VITALS: BP 110/80; PULSE 80; RESP 18; TEMP 36.4; O2SAT 100; BMI 24.2
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
[2024-05-23 16:31] LABS: MANUAL DIFF FLAG NO
[2024-05-23 16:32] LABS: Basophils Percent Auto 0.6 % (0-2); Eosinophils Absolute Auto 0.1 X10*3/uL (0.0-0.4); Eosinophils Percent Auto 1.1 % (0-4); Hematocrit 41.5 % (37.0-47.0); Hemoglobin 13.6 g/dl (12.0-16.0); Imm Gran Abs Auto 0.04 X10*3/uL (0.00-0.03); Imm Gran Pct Auto 0.6 % (0.0-0.4); Lymphocytes Absolute Auto 2.1 X10*3/uL (1.2-4.9); Lymphocytes Percent Auto 33.8 % (20-40); Mean Corpuscular HGB Conc 32.8 g/dl (31.0-35.0); Mean Corpuscular Hemoglobin 29.5 pg (27.0-33.0); Mean Platelet Volume 8.5 fL (9.4-12.3); Monocytes Absolute Auto 0.6 X10*3/uL (0.1-1.2); Monocytes Percent Auto 8.9 % (2-11); Neutrophils Absolute Auto 3.5 x10*3/uL (2.0-8.3); Platelet Count 249 X10*3/uL (160-400); Red Blood Count 4.61 X10*6/uL (4.20-5.50); Red Cell Distribution Width 13.1 % (11.0-16.0); White Blood Count 6.3 X10*3/uL (4.8-10.8)
[2024-05-23 16:35] LABS: Appearance Urine Clear; Color Urine Yellow; Glucose Urine UA Negative (Negative); Leukocyte Esterase Urine Negative (Negative); Nitrite Urine Negative (Negative); Specific Gravity - Urine >= 1.030 (1.005-1.025); UMIC TRIGGER UACC YES; Urine Blood Negative (Negative); Urine Ketones Trace mg/dL (Negative); Urine Protein 100 (2+) mg/dL (Neg-Trace)
[2024-05-23 16:40] LABS: Bacteria Urine 1+ (None Seen); Hyaline Casts Urine 0-2 /LPF (0-2); RBC Urine 0-2 /HPF (0-2); WBC Urine 0-5 /HPF (0-5)
[2024-05-23 17:03] LABS: Alanine Aminotransferase 7 U/L (0-31); Albumin Level 4.1 g/dL (3.5-5.0); Alkaline Phosphatase 75 U/L (39-117); Anion Gap 10 (12-20); Aspartate Amino Transferase 21 U/L (5-31); Bilirubin Direct < 0.2 mg/dL (0.0-0.5); Bilirubin Total 0.2 mg/dL (0.0-1.0); Blood Urea Nitrogen 14 mg/dL (9-16); Calcium 9.3 mg/dL (8.4-10.2); Carbon Dioxide 31 mmol/L (22-29); Chloride 106 mmol/L (96-108); Creatinine Clr Calc Pharmacy 83.2; Estimated Glomerular Filt Rate > 60; Glucose Random 95 mg/dL (60-115); HCG Quantitative < 2 mIU/mL; Lipase 21 U/L (8-78); Potassium 4.4 mmol/L (3.3-5.1); Sodium 143 mmol/L (135-145); Total Protein 6.9 g/dL (6.5-8.0)
== END 2024-05-23 21:17 | disposition left against medical advice (07) ==
PROVIDERS: Physician Assistant; Emergency Provider Emergency Medicine Emergency Medical Services
DX: R10.9 Unspecified abdominal pain (principal); R11.0 Nausea; R19.7 Diarrhea, unspecified; Z53.21 Procedure and treatment not carried out due to patient leaving prior to being seen by health care provider
CPT/HCPCS: 36415; 80048; 80076; 81001; 83690; 83735; 84702; 85025; 99282; 99283

== ENCOUNTER 2024-07-18 12:38 | Outpatient (AMB) | payer MEDICAID, SELFPAY ==
[2024-07-18 12:52] VITALS: BMI 24.1
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
--- OUTSIDE RECORDS SUMMARY | 2024-07-18 14:44 | XMS_ITS | Encounter Summary ---
Author Organization [facility] Address [address] [place] [address] Care Team Providers Care Boil Off Machine Operator Cloth Name Role Phone La Nena Alvarez MD Primary Care Provider [phone] La Nena Alvarez MD Primary Care Provider [phone] Delaney Harvey MD Primary Care Provider [phone] Encounter Details Date Type Department Care Team (Late st Contact Info) Description 06/02/2022 Orders Only [facility] [address] [place] [address] [phone] La Nena Alvarez MD [address] [place] [address] [phone] Blurry vision (Primary Dx) Social History Tobacco Use Types Packs/Day Years Used Date Smoking Tobacco: Never Assessed Comments Unknown Sex and Gender Information Value Date Recorded Sex Assigned at Female 2022 10:27 AM EDT Legal Sex Female 10:27 AM EDT Gender Identity Female 2022 10:27 AM EDT Sexual Orientation Straight 2022 10 :27 AM EDT COVID-19 Exposure Response Date Recorded In the last 10 days, have yo u been in contact with someone who was confirmed or suspected to have Coronavirus/COVID-19? No / Unsure 06/03/2022 11:24 AM EST documented as of this encounter Plan of Treatment Upcoming Encounters Date Type Department Care Team (Late st Contact Info) Description 08/17/2024 2:30 PM EST Office Visit [facility] [address] [place] [address] [phone] La Nena Alvarez MD [address] [place] [address] [phone] documented as of this encounter Visit Diagnoses Diagnosis Blurry vision- Primary Other specified visual disturbances documented in this encounter Care Teams Boil Off Machine Operator Cloth Relationship Specialty Start Date End Date La Nena Alvarez MD [address] [place] [address] PCP - General Family Medicine 04/07/22 11/01/23 La Nena Alvarez MD [address] [place] [address] PCP - General Family Medicine 11/04/23 01/23/24 Delaney Harvey MD [address] [place] [id number] PCP - General Family Medicine 01/24/24 documented as of this encounter
--- OUTSIDE RECORDS SUMMARY | 2024-07-18 14:44 | XMS_ITS | Encounter Summary ---
Author Organization [employer] [facility] Address [address] [place] [address] Care Team Providers Care Museum Archivist Name Role Phone La Nena Alvarez MD Primary Care Provider [phone] La Nena Alvarez MD Primary Care Provider [phone] Delaney Harvey MD Primary Care Provider [phone] Reason for Referral * Imaging (Routine) - Closed Specialty Diagnoses / Procedures Referred By Contac t Referred To Contact Radiology Diagnoses Achilles tendon mass Procedures MR Ankle w/ and w/o Contrast Left La Nena Alvarez MD [address] [place] [address] Phone: tel: fax: [address] Phone: tel: fax: Referral ID Status Reason Start Date Expiration Date Visits Re quested Visits Authorized [id number] Closed 08/31/2023 08/30/2024 1 1 Encounter Details Date Type Department Care Team (Late st Contact Info) Description 08/31/2023 Orders Only [facility] [address] [place] [address] La Nena Alvarez MD [address] [place], [place] [phone] Achilles tendon mass (Primary Dx) Social History Tobacco Use Types Packs/Day Years Used Date Smoking Tobacco: Never Passive Smoke Exposure: Never Smokeless Tobacco: Never Alcohol Use Standard Drinks/Week Comments Never 0 (1 standard drink = 0.6 oz pur e alcohol) Depression Answer Date Recorded Patient Health Questionnaire-9 Score 0 05/02/2023 Patient Health Questionnaire-9 Score 0 05/02/2023 Last PHQ-9: Questionnaire Data Not on file 1 07/02/2022 Housing Stability Answer Date Recorded What is your housing situation today? I have fredrick pal 04/13/[address] you li ve. Do you have problems with any of the following? None of the above 04/13/2023 Food Insecurity Answer Date Recorded Within the past 12 months, y ou worried that your food would run out before you got money to buy more: Never True 04/13/2023 Within the past 12 months,th e food you bought just didn't last and you didn't have enough money to get more: Never True Transportation Answer Date Recorded In the past 12 months, has l ack of transportation kept you from medical appts, meetings, work or from getting things needed for daily living? Yes, it has kept me from medical appointments or getting medications. 03/28/2023 Utilities Answer Date Recorded In the past 12 months, has t he electric, gas, oil or water company threatened to shut off services in your home? No 04/13/2023 Depression Answer Date Recorded Patient Health Questionnaire-2 Score 0 05/02/2023 Comments Unknown Sex and Gender Information Value Date Recorded Sex Assigned at Female 2022 10:27 AM EDT Legal Sex Female 10:27 AM EDT Gender Identity Female 2022 10:27 AM EDT Sexual Orientation Straight 2022 10 :27 AM EDT documented as of this encounter Plan of Treatment Upcoming Encounters Date Type Department Care Team (Late st Contact Info) Description 08/17/2024 2:30 PM EST Office Visit [facility] [address] [place] [address] La Nena Alvarez MD [address] [place] [address] Scheduled Orders Name Type Priority Associated Diagnoses Orde r Schedule MR Ankle w/ and w/o Contrast Left Imaging Routine Achilles tendon mass Expected: 08/31/2023, Expires: 08/30/2024 documented as of this encounter Visit Diagnoses Diagnosis Achilles tendon mass- Primary documented in this encounter Additional Health Concerns Assessment Noted Time PHQ-9 Depression Total Score: 0 05/02/20 23 2:15 PM EST documented as of this encounter Care Teams Museum Archivist Relationship Specialty Start Date End Date La Nena Alvarez MD [address] [place] [address] PCP - General Family Medicine 04/07/22 11/01/23 La Nena Alvarez MD [address] [place] [address] PCP - General Family Medicine 11/04/23 01/23/24 Delaney Harvey MD [address] [place] [id number] PCP - General Family Medicine 01/24/24 documented as of this encounter
--- OUTSIDE RECORDS SUMMARY | 2024-07-18 14:45 | XMS_ITS | Encounter Summary ---
Author Organization [email or web address] [facility] Address [address] 7[address] [place] [address] Care Team Providers Care Equipment Engineer Name Role Phone Delaney Harvey MD Primary Care Provider [phone] Encounter Details Date Type Department Care Team (Late st Contact Info) Description 04/16/2024 Orders Only [facility] [address] [place] [address] Provider, MD Herbert Social History Tobacco Use Types Packs/Day Years Used Date Smoking Tobacco: Every Day Cigarettes Passive Smoke Exposure: Never Smokeless Tobacco: Never Alcohol Use Standard Drinks/Week Comments Never 0 (1 standard drink = 0.6 oz pur e alcohol) Depression Answer Date Recorded Patient Health Questionnaire-9 Score 11 10/18/2023 Patient Health Questionnaire-9 Score 11 10/18/2023 Last PHQ-9: Questionnaire Data Not on file 0 10/18/2023 Housing Stability Answer Date Recorded What is your housing situation today? I have fredrickfadi pal 04/13/[address] you [...] the past 12 months, has t he [employer], [employer], oil or water company threatened to shut off services in your home? No 04/13/2023 Depression Answer Date Recorded Patient Health Questionnaire-2 Score 4 10/18/2023 Comments Unknown Sex and Gender Information Value [...] Description 08/17/2024 2:30 PM EST Office Visit [facility] MED[facility] [address] [place] [address] La Nena Alvarez MD [address] [place] [address] documented as of this encounter Procedures Procedure Name Priority Date/Time Associated Diagnosis Comments CBC (INCLUDES DIFFERENTIAL AND PLATELETS) W/SMEAR FOR EH Routine 04/14/2024 3:28 PM EDT documented in this encounter Results * CBC (includes Differential and Platelets) w/Smear for Ehrlichia (04/14/2024 3:28 PM EDT) Blood us Historical Provider LAB BLOOD ORDERABLES Aparna l Result documented in this encounter Visit Diagnoses Not on filedocumented in this encounter Additional Health Concerns Assessment Noted Time PHQ-9 Depression Total Score: 11 024 10:06 AM EDT documented as of this encounter Care Teams Equipment Engineer Relationship Specialty Start Date End Date Delaney Harvey MD [address] [place] [address] PCP - General Family Medicine 01/24/24 documented as of this encounter
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
--- OUTSIDE RECORDS SUMMARY | 2024-07-18 14:45 | XMS_ITS | Encounter Summary ---
Author Organization [facility] Address [address] 7 [place] [address] Care Team Providers Care Chemical Equipment Repairer Name Role Phone La Nena Alvarez MD Primary Care Provider [phone] La Nena Alvarez MD Primary Care Provider [phone] Delaney Harvey MD Primary Care Provider [phone] Encounter Details Date Type Department Care Team (Latest Contact Info) Description 08/28/2019 Abstract [facility] Dental, Provider, DDS Social History Tobacco Use Types Packs/Day Years [...] Description 08/17/2024 2:30 PM EST Office Visit [facility] [address] [place] [address] La Nena Alvarez MD [address] [place] [address] documented as of this encounter Visit Diagnoses Not on filedocumented in this encounter Care Teams Chemical Equipment Repairer Relationship Specialty Start Date End Date La Nena Alvarez MD [address] [place] [address] PCP - General Family Medicine 04/07/22 11/01/23 La Nena Alvarez MD [address] [place] [id number] PCP - General Family Medicine 11/04/23 01/23/24 Delaney Harvey MD [address] [place] [address] PCP - General Family Medicine 01/24/24 documented as of this encounter
--- OUTSIDE RECORDS SUMMARY | 2024-07-18 14:45 | XMS_ITS | Encounter Summary ---
Author Organization [facility] Address [address] [facility] 7t [place] [address] Care Team Providers Care Spooling Operator Name Role Phone La Nena Alvarez MD Primary Care Provider [phone] La Nena Alvarez MD Primary Care Provider [phone] Delaney Harvey MD Primary Care Provider [phone] Reason for Referral * Imaging (Routine) - Canceled Specialty Diagnoses / Procedures Referred By Contac t Referred To Contact Radiology Diagnoses Ankle mass, left Procedures MR Ankle w/ Contrast Left La Nena Alvarez MD [address] [place] [address] Phone: tel: fax: Referral ID Status Reason Start Date Expiration Date V isits Requested Visits Authorized [id number] Canceled 05/30/2023 05/29/2024 1 1 Encounter Details Date Type Department Care Team (Late st Contact Info) Description 05/30/2023 Orders Only [facility] MED[facility]INE [address] [place], [place] [phone] La Nena Alvarez MD [address] [place], [place] [phone] Ankle mass, left (Primary Dx) Social History Tobacco Use Types [...] Description 08/17/2024 2:30 PM EST Office Visit [facility] MED[facility]INE [address] [place] [address] La Nena Alvarez MD [address] [place] [address] Scheduled Orders Name Type Priority Associated Diagnoses Orde r Schedule MR Ankle w/ Contrast Left Imaging Routine Ankle mass, left Expected: 05/30/2023, Expires: 05/30/2024 documented as of this encounter Visit Diagnoses Diagnosis Ankle mass, left- Primary documented in this encounter Additional Health Concerns Assessment Noted Time PHQ-9 Depression Total Score: 0 05/02/20 23 2:15 PM EST documented as of this encounter Care Teams Spooling Operator Relationship Specialty Start Date End Date La Nena Alvarez MD [address] [place] [address] PCP - General Family Medicine 04/07/22 11/01/23 La Nena Alvarez MD [address] [place] [address] PCP - General Family Medicine 11/04/23 01/23/24 Delaney Harvey MD [address] [place] [address] PCP - General Family Medicine 01/24/24 documented as of this encounter
--- OUTSIDE RECORDS SUMMARY | 2024-07-18 14:45 | XMS_ITS | Encounter Summary ---
Author Organization [employer] [facility] Address [address] [facility] [address] 7[address] [place] [address] Care Team Providers Care Cinema Operator Name Role Phone Delaney Harvey MD Primary Care Provider [phone] Reason for Visit * Reason Onset Date Comments recall 07/05/2024 Encounter Details Date Type Department Care Team ([facility] st Contact Info) Description 07/05/2024 Telephone [facility] MEDICINE [address] [place] [address] [place], [place] recall Social History Tobacco Use Types Packs/Day Years [...] AM EDT documented as of this encounter Miscellaneous Notes * Telephone Encounter - Areli Rosenberg [place] - 07/05/2024 2:40 PM EST T/C placed to pt to schedule f/u . Lvm for pt to cb & schedule appt. Sent RCL documented in this encounter Plan of Treatment Upcoming Encounters Date Type Department Care Team (Late st Contact Info) Description 08/17/2024 2:30 PM EST Office Visit [facility] [address] [place] [address] La Nena Alvarez MD [address] [place] [address] documented as of this encounter Visit Diagnoses Not on filedocumented in this encounter Additional Health Concerns Assessment Noted Time PHQ-9 Depression Total Score: 11 024 10:06 AM EDT documented as of this encounter Care Teams Cinema Operator Relationship Specialty Start Date End Date Delaney Harvey MD [address] [place] [address] PCP - General Family Medicine 01/24/24 documented as of this encounter
--- OUTSIDE RECORDS SUMMARY | 2024-07-18 14:46 | XMS_ITS | Encounter Summary ---
Author Organization [employer] [facility] Address [address] [facility] [address] 7t [place] [address] Care Team Providers Care Help Desk Team Leader Name Role Phone La Nena Alvarez MD Primary Care Provider [phone] Delaney Harvey MD Primary Care Provider [phone] Encounter Details Date Type Department Care Team (Late st Contact Info) Description 11/28/2023 Orders Only [facility] [address] [place] [address] Provider, MD Herbert Social History Tobacco Use [...] Description 08/17/2024 2:30 PM EST Office Visit [facility] MEDICINE [address] [place] [address] La Nena Alvarez MD [address] [place] [address] documented as of this encounter Visit Diagnoses Not on filedocumented in this encounter Additional Health Concerns Assessment Noted Time PHQ-9 Depression Total Score: 11 024 10:06 AM EDT documented as of this encounter Care Teams Help Desk Team Leader Relationship Specialty Start Date End Date LaN ena Alvarez MD [address] [place] [address] PCP - General Family Medicine 11/04/23 01/23/24 Delaney Harvey MD [address] [place] [address] PCP - General Family Medicine 01/24/24 documented as of this encounter
--- OUTSIDE RECORDS SUMMARY | 2024-07-18 14:46 | XMS_ITS | Encounter Summary ---
Author Organization [employer] [facility] Address [address] [facility] [address] 7t [place] [address] Care Team Providers Care Humidifier Maintenance Worker Name Role Phone La Nena Alvarez MD Primary Care Provider [phone] Delaney Harvey MD Primary Care Provider [phone] Encounter Details Date Type Department Care Team (Late st Contact Info) Description 11/29/2023 Orders Only [facility] [address] [place] [address] Provider, MD Herbert Social History Tobacco Use [...] Description 08/17/2024 2:30 PM EST Office Visit [facility] MEDICINE [address] [place] [phone] La Nena Alvarez MD [address] [place] [address] documented as of this encounter Procedures Procedure Name Priority Date/Time Associated Diagnosis Comments HCG, URINE, QUALITATIVE Routine 11/27/2023 9:59 AM EDT CREATININE, SERUM Routine 11/27/2023 9:59 AM EDT URINALYSIS WITH REFLEX MICROSCOPIC Routine 11/27/2023 9:59 AM EDT CULTURE, URINE, ROUTINE Routine 11/27/2023 9:59 AM EDT MAGNESIUM Routine 11/27/2023 9:59 AM EDT LIPASE Routine 11/27/2023 9:59 AM EDT BASIC METABOLIC PANEL Routine 11/27/2023 9:59 AM EDT documented in this encounter Results * Basic Metabolic Panel (11/27/2023 9:59 AM EDT) Blood Venous blood specimen / Unknown us Historical Provider LAB BLOOD ORDERABLES Aparna l Result * hCG, urine, qualitative (11/27/2023 9:59 AM EDT) Urine Urine specimen obtained by clean catch procedure / Unknown us Historical Provider LAB URINE ORDERABLES Aparna l Result * Urinalysis w/reflex microscopic (11/27/2023 9:59 AM EDT) Urine (Urine, Random) Result [facility] Provider MD LAB URINE ORDERABLES Aparna l Result * Culture, Urine, Routine (11/27/2023 9:59 AM EDT) Urine Result [facility] Provider MD LAB MICROBIOLOGY - GENERA L ORDERABLES Final Result * Creatinine, Serum (11/27/2023 9:59 AM EDT) Blood Venous blood specimen / Unknown Result [facility] MD LAB BLOOD ORDERABLES Aparna l Result * Lipase (11/27/2023 9:59 AM EDT) Blood Venous blood specimen / Unknown Result [facility] MD LAB BLOOD ORDERABLES Aparna l Result * Magnesium (11/27/2023 9:59 AM EDT) Blood Venous blood specimen / Unknown Result [facility] MD LAB BLOOD ORDERABLES Aparna l Result documented in this encounter Visit Diagnoses Not on filedocumented in this encounter Additional Health Concerns Assessment Noted Time PHQ-9 Depression Total Score: 11 10/17/ 024 10:06 AM EDT documented as of this encounter Care Teams Humidifier Maintenance Worker Relationship Specialty Start Date End Date La Nena Alvarez MD [address] [place] [address] PCP - General Family Medicine 11/04/23 01/23/24 Delaney Harvey MD [address] [place] [address] PCP - General Family Medicine 01/24/24 documented as of this encounter
--- OUTSIDE RECORDS SUMMARY | 2024-07-18 14:46 | XMS_ITS | Encounter Summary ---
Author Organization [employer] [facility] Address [address] [facility] [address] 7t [place] [address] Care Team Providers Care Plastic Parts Fabricator Trimmer Name Role Phone La Nena Alvarez MD Primary Care Provider [phone] La Nena Alvarez MD Primary Care Provider [phone] Delaney Harvey MD Primary Care Provider [phone] Reason for Visit * Reason Onset Date Comments PT1 10/07/2023 Encounter Details Date Type Department Care Team (Late st Contact Info) Description 10/07/[address] [facility] MEDICINE [address] [place], [place] [phone] La Nena Alvarez MD [address] [place] [address] PT1 Social History Tobacco Use Types Packs/Day Years [...] encounter Miscellaneous Notes * Telephone Encounter - Jackie Joe - 10/10/2023 11:28 AM EDT Patient will recieve approval / denial letter via mail. PT-1 Request [id number] Pending - [address] [address] * Telephone Encounter - Mansi Olea - 10/07/2023 11:12 AM EDT Patient calling requesting PT1 Home Address verified: Y/N: Yes Provider name or facility name: [facility] Facility Address: [address] [place] [address] Escort needed: Y/N: No Do you have a wheelchair: Y/N: No If yes- Manual or electric: no Visits: 3-4 time a month documented in this encounter Plan of Treatment Upcoming Encounters Date Type Department Care Team ([facility] Contact Info) Description 08/17/2024 2:30 PM EST Office Visit [facility] MEDICINE [address] [place] [address] La Nena Alvarez MD [address] [place] [address] documented as of this encounter Visit Diagnoses Not on filedocumented in this encounter Additional Health Concerns Assessment Noted Time PHQ-9 Depression Total Score: 0 05/02/20 23 2:15 PM EST documented as of this encounter Care Teams Plastic Parts Fabricator Trimmer Relationship Specialty Start Date End Date La Nena Alvarez MD [address] [place] [address] PCP - General Family Medicine 04/07/22 11/01/23 La Nena Alvarez MD [address] [place] [address] PCP - General Family Medicine 11/04/23 01/23/24 Delaney Harvey MD [address] [place] [address] PCP - General Family Medicine 01/24/24 documented as of this encounter
--- OUTSIDE RECORDS SUMMARY | 2024-07-18 14:46 | XMS_ITS | Encounter Summary ---
Author Organization [employer] Address [address] [facility] [address] 7t [place] [address] Care Team Providers Care Raftsman Name Role Phone La Nena Alvarez MD Primary Care Provider [phone] La Nena Alvarez MD Primary Care Provider [phone] Delaney Harvey MD Primary Care Provider [phone] Encounter Details Date Type Department Care Team (Late st Contact Info) Description 10/05/2023 Orders Only [facility] [address] [place] [address] ProviderHerbert MD Social History Tobacco Use Types Packs/Day Years [...] Description 08/17/2024 2:30 PM EST Office Visit [facility] MEDICINE [address] [place] [address] [phone] La Nena Alvarez MD [address] [place] [address] [phone] documented as of this encounter Procedures Procedure Name Priority Date/Time Associated Diagnosis Comments TOXICOLOGY SCREEN, URINE Routine 10/04/2023 2:44 PM EDT URINALYSIS WITH REFLEX MICROSCOPIC Routine 10/04/2023 2:02 PM EDT documented in this encounter Results * Toxicology screen, urine (10/04/2023 2:44 PM EDT) Urine Urine specimen obtained by clean catch procedure / Unknown Historical Provider LAB URINE ORDERABLES Aparna l Result * Urinalysis w/reflex microscopic (10/04/2023 2:02 PM EDT) Urine (Urine, Random) Historical Provider LAB URINE ORDERABLES Aparna l Result documented in this encounter Visit Diagnoses Not on filedocumented in this encounter Additional Health Concerns Assessment Noted Time PHQ-9 Depression Total Score: 0 05/02/20 23 2:15 PM EST documented as of this encounter Care Teams Raftsman Relationship Specialty Start Date End Date La Nena Alvarez MD [address] [place] [address] PCP - General Family Medicine 04/07/22 11/01/23 La Nena Alvarez MD [address] [place] [address] PCP - General Family Medicine 11/04/23 01/23/24 Delaney Harvey MD [address] [place] [address] PCP - General Family Medicine 01/24/24 documented as of this encounter
--- OUTSIDE RECORDS SUMMARY | 2024-07-18 14:46 | XMS_ITS | Encounter Summary ---
Author Organization [employer] [facility] Address [address] [facility] 7t [place] [address] Care Team Providers Care Boat Hand Name Role Phone La Nena Alvarez MD Primary Care Provider [phone] La Nena Alvarez MD Primary Care Provider [phone] Delaney Harvey MD Primary Care Provider [phone] Reason for Visit * Reason Onset Date Comments Appointment Request 09/27/2022 Encounter Details Date Type Department Care Team (Late st Contact Info) Description 09/27/2022 Telephone [facility] MEDICINE [address] [place] [address] La Nena Alvarez MD [address] [place] [address] Appointment Request Social History Tobacco Use Types Packs/Day Years Used Date Smoking Tobacco: Never Passive Smoke Exposure: Never Smokeless Tobacco: Never Alcohol Use Standard Drinks/Week Comments Never 0 (1 standard drink = 0.6 oz pur e alcohol) Comments Unknown Sex and Gender Information Value [...] suspected to have Coronavirus/COVID-19? No / Unsure 09/20/2022 11:36 AM EDT documented as of this encounter Miscellaneous Notes * Telephone Encounter - Lucianatorin Lundbergadi York - 09/27/2022 12:43 PM EDT Tc from pt returning phone call regarding Physical Appt. Pt states she received a phone call Please contact pt at [phone] Indonesian Speaker documented in this encounter Plan of Treatment Upcoming Encounters Date Type Department Care Team (Late st Contact Info) Description 08/17/2024 2:30 PM EST Office Visit [facility] MEDICINE [address] [place] [address] La Nena Alvarez MD [address] [place] [address] documented as of this encounter Visit Diagnoses Not on filedocumented in this encounter Care Teams Boat Hand Relationship Specialty Start Date End Date La Nena Alvarez MD [address] [place] [address] PCP - General Family Medicine 04/07/22 11/01/23 La Nena Alvarez MD [address] [place] [address] PCP - General Family Medicine 11/04/23 01/23/24 Delaney Harvey MD [address] [place] [address] PCP - General Family Medicine 01/24/24 documented as of this encounter
--- OUTSIDE RECORDS SUMMARY | 2024-07-18 14:46 | XMS_ITS | Encounter Summary ---
Author Organization [email or web address] [facility] Address [address] [address] 7[address] [place] [address] Care Team Providers Care Glass Mechanic Name Role Phone La Nena Alvarez MD Primary Care Provider [phone] Delaney Harvey MD Primary Care Provider [phone] Reason for Visit * Reason Comments Med Refill Encounter Details Date Type Department Care Team ([facility] st Contact Info) Description 12/14/2023 Refill [facility] [address] [place], [place] [phone] Marcia Alexander MD [address] [place] [address] Social History Tobacco Use Types Packs/Day Years [...] Description 08/17/2024 2:30 PM EST Office Visit [facility] MEDICINE [address] [place] [address] La Nena Alvarez MD [address] [place] [address] documented as of this encounter Visit Diagnoses Not on filedocumented in this encounter Additional Health Concerns Assessment Noted Time PHQ-9 Depression Total Score: 11 024 10:06 AM EDT documented as of this encounter Care Teams Glass Mechanic Relationship Specialty Start Date End Date La Nena Alvarez MD [address] [place] [address] PCP - General Family Medicine 11/04/23 01/23/24 Delaney Harvey MD [address] [place] [address] PCP - General Family Medicine 01/24/24 documented as of this encounter
--- OUTSIDE RECORDS SUMMARY | 2024-07-18 14:46 | XMS_ITS | Encounter Summary ---
Author Organization [facility] [facility] Address [address] [facility] [address] 7[address] [place] [address] Care Team Providers Care Factory Assembler Name Role Phone La Nena Alvarez MD Primary Care Provider [phone] La Nena Alvarez MD Primary Care Provider [phone] Delaney Harvey MD Primary Care Provider [phone] Reason for Visit * Reason Comments Med Refill Encounter Details Date Type Department Care Team ([facility] Contact Info) Description 11/25/2022 Refill [facility] [address] [place] [address] [phone] La Nena Alvarez MD [address] [place], [place] [phone] Social History Tobacco Use Types Packs/Day Years Used Date Smoking Tobacco: Never Passive Smoke Exposure: Never Smokeless Tobacco: Never Alcohol Use Standard Drinks/Week Comments Never 0 (1 standard drink = 0.6 oz pur e alcohol) Depression Answer Date Recorded Patient Health Questionnaire-9 Score 12 10/22/2022 Depression Answer Date Recorded Patient Health Questionnaire-2 Score 5 10/22/2022 Comments Unknown Sex and Gender Information Value [...] suspected to have Coronavirus/COVID-19? No / Unsure 11/09/2022 5:26 PM EDT documented as of this encounter Plan of Treatment Upcoming Encounters Date Type Department Care Team ([facility] Contact Info) Description 08/17/2024 2:30 PM EST Office Visit [facility] MEDICINE [address] [place] [address] La Nena Alvarez MD [address] [place] [address] documented as of this encounter Visit Diagnoses Not on filedocumented in this encounter Additional Health Concerns Assessment Noted Time PHQ-9 Depression Total Score: 12 023 11:27 AM EDT documented as of this encounter Care Teams Factory Assembler Relationship Specialty Start Date End Date La Nena Alvarez MD [address] [place] [address] PCP - General Family Medicine 04/07/22 11/01/23 La Nena Alvarez MD [address] [place] [address] PCP - General Family Medicine 11/04/23 01/23/24 Delaney Harvey MD [address] [place] [address] PCP - General Family Medicine 01/24/24 documented as of this encounter
--- OUTSIDE RECORDS SUMMARY | 2024-07-18 14:46 | XMS_ITS | Encounter Summary ---
Author Organization [facility] Address [address] [facility] 7t [place] [address] Care Team Providers Care Fast Food Sales Assistant Name Role Phone Delaney Harvey MD Primary Care Provider [phone] Encounter Details Date Type Department Care Team (Late st Contact Info) Description 02/01/2024 Orders Only [facility] [address] [place] [address] Provider, MD Herbert Social History Tobacco Use [...] the past 12 months, has t he [employer], oil or water [employer] threatened to shut off services in your [...] Description 08/17/2024 2:30 PM EST Office Visit [facility] MEDICINE [address] [place], [place] [phone] La Nena Alvarez MD [address] [place], [place] [phone] documented as of this encounter Procedures Procedure Name Priority Date/Time Associated Diagnosis Comments CBC WITH AUTO DIFFERENTIAL Routine 02/01/2024 2:11 PM EDT HCG, TOTAL, QN Routine 02/01/2024 2:11 PM EDT LIPASE Routine 02/01/2024 2:11 PM EDT COMPREHENSIVE METABOLIC PANEL Routine 02/01/2024 2:11 PM EDT LIPASE Routine 01/31/2024 11:11 AM EDT CBC (INCLUDES DIFFERENTIAL AND PLATELETS) W/SMEAR FOR EH Routine 01/31/2024 11:09 AM EDT documented in this encounter Results * hCG, Total, Quantitative (02/01/2024 2:11 PM EDT) HCG Quantitative <2 mIU/mL [facility] Comment:Weeks post LMP Appro ximate hCG(Last Menstrual Period) Range (mIU/ml)3 - 4 weeks 9 - 1304 - 5 weeks 75 - 2,6005 - 6 weeks 850 - 20,8006 - 7 weeks 4000 - 100,2007 - 12 weeks 11,500 - 289,10128 - 16 weeks 18,300 - 137,56471 - 29 weeks (2nd trimester) 1,400 - 53,99697 - 41 weeks (3rd trimester) 940 - 60,000The Fitzgerald B- hCG assay is used for the early detection ofpregnancy; it cannot be used to diagnose any conditionunrelated to . If a B-hCG level is not supportedby the clinical evidence, results should be confirmed by analternative method (qualitative urine hCG, for example). 02/01/2024 2:1 1 PM EDT 02/01/2024 2:13 PM EDT Generic External Data Provider LAB BLOOD ORDERAB LES Final Result Performing Organization Address City/[facility]/ZIP Co de Phone Number [facility] [address] [place] [phone] * Lipase (02/01/2024 2:11 PM EDT) Lipase 17 8 - 78 U/L [facility] 02/01/2024 2:11 PM EDT 02/01/2024 2:13 PM EDT Generic External Data Provider LAB BLOOD ORDERAB LES Final Result Performing Organization Address [facility] Co de Phone Number [facility] [address] [place] [phone] * (ABNORMAL) Comprehensive Metabolic Panel (02/01/2024 2:11 PM EDT) Sodium 140 135 - 145 mmol/L [facility] Potassium 4.4 3.3 - 5.1 mmol/L [facility] Chloride 105 96 - 108 mmol/L [facility] Carbon Dioxide 29 22 - 29 mmol/L [facility] Anion Gap 10(L) 12 - 20 [facility] Urea Nitrogen (BUN) 13 9 - 16 mg/dL [facility] Creatinine, Serum 0.72 0.5 - 1.4 mg/dL [facility] Creatinine Clr Calc Pharmacy 109.1 [facility] Comment:Provided height and weight: 160.02 cm,67.4 kg.eGFR (calculated from the MDRD study equation) and eCrCl(calculated from the Cockcroft-Gault equation) are based ondifferent parameters and may not yield comparable results.If eCrCl result is absurd, please check patient'sheight/weight. Estimated Glomerular Filt Rate >60 [facility] Comment:NOTE: For -Am erican individuals, multiply the result by 1.210.Chronic Kidney Disease: Estimated GFR < 60 mL/min/1.71o3Eipayj Kidney Disease: Estimated GFR < 15 mL/min/1.73m2 Glucose 85 60 - 115 mg/dL [facility] Calcium 9.7 8.4 - 10.2 mg/dL [facility] Bilirubin, Total 0.4 0.0 - 1.0 mg/dL [facility] Aspartate Amino Transferase 19 5 - 31 U/L [facility] Alanine Aminotransferase 15 0 - 31 U/L [facility] Total Protein 7.1 6.5 - 8.0 g/dL [facility] Albumin Level 4.2 3.5 - 5.0 g/dL [facility] Alkaline Phosphatase 70 39 - 117 U/L [facility] 02/01/2024 2:11 PM EDT 02/01/2024 2:13 PM EDT us Generic External Data Provider LAB BLOOD ORDERAB LES Final Result [facility] [address] [place] [phone] * (ABNORMAL) CBC auto differential (02/01/2024 2:11 PM EDT) White Blood Count 7.0 4.8 - 10.8 X10*3/uL [facility] Red Blood Count 4.29 4.20 - 5.50 X10*6/uL [facility] Hemoglobin 12.6 12.0 - 16.0 g/dl [facility] Hematocrit 38.0 37.0 - 47.0 % [facility] Mean Corpuscular Volume 88.6 80.0 - 98.0 fL [facility] Mean Corpuscular Hemoglobin 29.4 27.0 - 33.0 pg [facility] Mean Corpuscular HGB Conc 33.2 31.0 - 35.0 g/dl [facility] Red Cell Distribution Width 13.2 11.0 - 16.0 % [facility] Platelet Count 253 160 - 400 X10*3/uL [facility] Mean Platelet Volume 8.3(L) 9.4 - 12.3 fL [facility] Neutrophils Percent Auto 58.3 45 - 73 % [facility] Imm Gran Pct Auto 0.4 0.0 - 0.4 % [facility] Lymphocytes Percent Auto 29.4 20 - 40 % [facility] Monocytes Percent Auto 10.2 2 - 11 % [facility] Eosinophils Percent Auto 1.1 0 - 4 % [facility] Basophils Percent Auto 0.6 0 - 2 % [facility] NRBC Pct Auto 0.0 0.0 - 0.2 /100WBC [facility] Neutrophils Absolute Auto 4.1 2.0 - 8.3 x10*3/uL [facility] Imm Gran Abs Auto 0.03 0.00 - 0.03 X10*3/uL [facility] Lymphocytes Absolute Auto 2.1 1.2 - 4.9 X10*3/uL [facility] Monocytes Absolute Auto 0.7 0.1 - 1.2 X10*3/uL [facility] Eosinophils Absolute Auto 0.1 0.0 - 0.4 X10*3/uL [facility] Basophils Absolute Auto 0.0 0.0 - 0.2 X10*3/uL [facility] NRBC Abs Auto 0.000 0.0 - 0.012 X10*3/uL [facility] 02/01/2024 2:11 PM EDT 02/01/2024 2:13 PM EDT us Generic External Data Provider LAB BLOOD ORDERAB LES Final Result [facility] [address] [place] [address] [phone] * Lipase (01/31/2024 11:11 AM EDT) Blood Venous blood specimen / Unknown Historical Provider LAB BLOOD ORDERABLES Aparna l Result * CBC (includes Differential and Platelets) w/Smear for Ehrlichia (01/31/2024 11:09 AM EDT) Blood Historical Provider MD LAB BLOOD ORDERABLES Aparna l Result documented in this encounter Visit Diagnoses Not on filedocumented in this encounter Additional Health Concerns Assessment Noted Time PHQ-9 Depression Total Score: 11 10/17/ 024 10:06 AM EDT documented as of this encounter Care Teams Fast Food Sales Assistant Relationship Specialty Start Date End Date Delaney Harvey MD [address] [place] [address] PCP - General Family Medicine 01/24/24 documented as of this encounter
--- OUTSIDE RECORDS SUMMARY | 2024-07-18 14:46 | XMS_ITS | Encounter Summary ---
Author Organization [facility] Address [address] [facility] [address] 7[address] [place] [address] Care Team Providers Care Fly Worker Name Role Phone Delaney Harvey MD Primary Care Provider [phone] Encounter Details Date Type Department Care Team (Late st Contact Info) Description 07/03/2024 Telephone [facility] [address] [place] [address] Mena Townsend, TAVIA Social History Tobacco Use Types Packs/Day Years [...] t he electric, gas, oil or water [employer] threatened to shut off services in your [...] encounter Miscellaneous Notes * Telephone Encounter - Mena Townsend RN - 07/03/2024 2:21 PM EST Pt reported her rollator broke. Pt requesting a replacement. Called and left message for [facility] requesting rollator. documented in this encounter Plan of Treatment Upcoming Encounters Date Type Department Care Team (Late st Contact Info) Description 08/17/2024 2:30 PM EST Office Visit [facility] MEDICINE [address] [place] [address] La Nena Alvarez MD [address] [place] [address] documented as of this encounter Visit Diagnoses Not on filedocumented in this encounter Additional Health Concerns Assessment Noted Time PHQ-9 Depression Total Score: 11 024 10:06 AM EDT documented as of this encounter Care Teams Fly Worker Relationship Specialty Start Date End Date Delaney Harvey MD [address] [place] [address] PCP - General Family Medicine 01/24/24 documented as of this encounter
--- OUTSIDE RECORDS SUMMARY | 2024-07-18 14:46 | XMS_ITS | Encounter Summary ---
Author Organization [employer] [facility] Address [address] [address] [place] [address] Care Team Providers Care Statement Clerk Name Role Phone La Nena Alvarez MD Primary Care Provider [phone] La Nena Alvarez MD Primary Care Provider [phone] Delaney Harvey MD Primary Care Provider [phone] Reason for Visit * Reason Onset Date Comments triage 09/14/2022 Encounter Details Date Type Department Care Team (Late st Contact Info) Description 09/14/2022 Telephone [facility] MEDICINE [address] [place], [place] [phone] La Nena Alvarez MD [address] [place] [address] triage Social History Tobacco Use Types Packs/Day Years [...] was confirmed or suspected to have Coronavirus/COVID-19? Unable to assess 12/24/2022 4:16 PM EDT documented as of this encounter Miscellaneous Notes * Telephone Encounter - Rakel Peck RN - 09/14/2022 12:29 PM EDT Triage call with [employer] [place] [id number] Attempted to contact Pt x2, mail box is full unable to leave message. * Telephone Encounter - Carlotta Winston - 09/14/2022 10:19 AM EDT Symptom: Dizziness Outcome: Talk to a nurse or provider within 15 minutes Reason: Trouble walking The caller accepted this outcome Please contact at [phone] Taj[place] documented in this encounter Plan of Treatment Upcoming Encounters Date Type Department Care Team (Late st Contact Info) Description 08/17/2024 2:30 PM EST Office Visit [facility] [address] [place] [address] La Nena Alvarez MD [address] [place], [place] [phone] documented as of this encounter Visit Diagnoses Not on filedocumented in this encounter Care Teams Statement Clerk Relationship Specialty Start Date End Date La Nena Alvarez MD [address] [place] [phone] PCP - General Family Medicine 04/07/22 11/01/23 La Nena Alvarez MD [address] [place] [address] PCP - General Family Medicine 11/04/23 01/23/24 Delaney Harvey MD [address] [place] [address] PCP - General Family Medicine 01/24/24 documented as of this encounter
--- OUTSIDE RECORDS SUMMARY | 2024-07-18 14:46 | XMS_ITS | Encounter Summary ---
Author Organization [employer] Address [address] 7[address] [place] [address] Care Team Providers Care Varnish Mixer Name Role Phone La Nena Alvarez MD Primary Care Provider [phone] Delaney Harvey MD Primary Care Provider [phone] Encounter Details Date Type Department Care Team (Late st Contact Info) Description 11/25/2023 Orders Only [facility] CHC MED & PEDS [address] [place], [place] [phone] Provider, MD Herbert Social History Tobacco Use [...] [facility] MEDICINE [address] [place] [address] [phone] La Nena Alvarez MD [address] [place] [address] documented as of this encounter Procedures Procedure Name Priority Date/Time Associated Diagnosis Comments URINALYSIS, COMPLETE, WITH REFLEX TO CULTURE Routine 11/24/2023 8:53 AM EDT CBC Routine 11/24/2023 8:53 AM EDT HCG, TOTAL, QN Routine 11/24/2023 8:53 AM EDT LIPASE Routine 11/24/2023 8:53 AM EDT HEPATIC FUNCTION PANEL Routine 11/24/2023 8:53 AM EDT BASIC METABOLIC PANEL Routine 11/24/2023 8:53 AM EDT documented in this encounter Results * Urinalysis, Complete, with Reflex to Culture (11/24/2023 8:53 AM EDT) Urine us Historical Provider LAB URINE ORDERABLES Aparna l Result * CBC (11/24/2023 8:53 AM EDT) Blood Venous blood specimen / Unknown Historical Provider LAB BLOOD ORDERABLES Aparna l Result * Basic Metabolic Panel (11/24/2023 8:53 AM EDT) Blood Venous blood specimen / Unknown [facility] Provider MD LAB BLOOD ORDERABLES Aparna l Result * hCG, Total, Quantitative (11/24/2023 8:53 AM EDT) Blood Venous blood specimen / Unknown Result [facility] Provider MD LAB BLOOD ORDERABLES Aparna l Result * Lipase (11/24/2023 8:53 AM EDT) Blood Venous blood specimen / Unknown Result [facility] Provider MD LAB BLOOD ORDERABLES Aparna l Result * Hepatic Function Panel (11/24/2023 8:53 AM EDT) Blood Venous blood specimen / Unknown Result [facility] Provider MD LAB BLOOD ORDERABLES Aparna l Result documented in this encounter Visit Diagnoses Not on filedocumented in this encounter Additional Health Concerns Assessment Noted Time PHQ-9 Depression Total Score: 11 024 10:06 AM EDT documented as of this encounter Care Teams Varnish Mixer Relationship Specialty Start Date End Date La Nena Alvarez MD [address] [place] [address] PCP - General Family Medicine 11/04/23 01/23/24 Delaney Harvey MD [address] [place] [address] PCP - General Family Medicine 01/24/24 documented as of this encounter
--- OUTSIDE RECORDS SUMMARY | 2024-07-18 14:46 | XMS_ITS | Patient Health Record ---
Author Organization [facility] Address [address] [place], [place] [id number] Care Team Providers Care Pit Recorder Name Role Phone [facility] Primary Care Provider Rosana talatgianni Maisha Campos Unavailable [phone] Reason For Referral No Information Plan Of Treatment No Information Insurance Providers Payer Name Payer Address Payer Phone Subscriber Number Group Number Insured Name Patient Relationship to Insured Coverage Start Date Coverage End Date [facility] [address] [place] [phone] [id number] Judie Santos Self - patient is the insured 3
--- OUTSIDE RECORDS SUMMARY | 2024-07-18 14:46 | XMS_ITS | Encounter Summary ---
Author Organization [employer] Address [address] 7[address] [place] [address] Care Team Providers Care It Manager Name Role Phone La Nena Alvarez MD Primary Care Provider [phone] La Nena Alvarez MD Primary Care Provider [phone] Delaney aHrvey MD Primary Care Provider [phone] Encounter Details Date Type Department Care Team (Late st Contact Info) Description 10/06/2023 Orders Only [facility] CHC MED & PEDS [address] [place] [address] ProviderHerbert MD Social History Tobacco Use Types [...] 2:30 PM EST Office Visit [facility] MEDICINE [address] [place], [place] [phone] La Nena Alvarez MD [address] [place], [place] [phone] documented as of this encounter Procedures Procedure Name Priority Date/Time Associated Diagnosis Comments COVID-19 (NOVEL CORONAVIRUS) PCR Routine 10/05/2023 9:49 AM EDT CBC Routine 10/04/2023 10:54 AM EDT ACETAMINOPHEN LEVEL Routine 10/04/2023 1 0:31 AM EDT documented in this encounter Results * COVID-19 (Novel Coronavirus) PCR (10/05/2023 9:49 AM EDT) Historical Provider MD LAB BLOOD ORDERABLES Aparna l Result * CBC (10/04/2023 10:54 AM EDT) Blood Venous blood specimen / Unknown Historical Provider MD LAB BLOOD ORDERABLES Aparna l Result * Acetaminophen level (10/04/2023 10:31 AM EDT) Blood Venous blood specimen / Unknown Historical Provider MD LAB BLOOD ORDERABLES Aparna l Result documented in this encounter Visit Diagnoses Not on filedocumented in this encounter Additional Health Concerns Assessment Noted Time PHQ-9 Depression Total Score: 0 05/02/20 23 2:15 PM EST documented as of this encounter Care Teams It Manager Relationship Specialty Start Date End Date La Nena Alvarez MD [address] [place] [address] PCP - General Family Medicine 04/07/22 11/01/23 La Nena Alvarez MD [address] [place] [address] PCP - General Family Medicine 11/04/23 01/23/24 Delaney Harvey MD [address] [place] [address] PCP - General Family Medicine 01/24/24 documented as of this encounter
--- OUTSIDE RECORDS SUMMARY | 2024-07-18 14:46 | XMS_ITS | Encounter Summary ---
Author Organization [employer] [facility] Address [address] 7[address] [place] [address] Care Team Providers Care Cement Worker Name Role Phone La Nena Alvarez MD Primary Care Provider [phone] Delaney Harvey MD Primary Care Provider Reason for Visit * Reason Onset Date Comments Med Refill 12/06/2023 Encounter Details Date Type Department Care Team ([facility] st Contact Info) Description 12/06/2023 Telephone [facility] MEDICINE [address] [place], [place] [phone] La Nena Alvarez MD [address] [place] [address] Med Refill Social History Tobacco Use Types Packs/Day Years [...] encounter Miscellaneous Notes * Telephone Encounter - Shahnaz Jimenez LPN - 12/06/2023 9:44 AM EDT Flag indicates patient was going to another provider 11/02/23. * Telephone Encounter - Simon Walden - 12/06/2023 9:40 AM EDT TC from pt requesting medication refill. Medications needing refill : ibuprofen 800 MG tablet To be sent to: [facility] - [place], [place] - [address] [place] [address] documented in this encounter Plan of Treatment Upcoming Encounters Date Type Department Care Team (Late st Contact Info) Description 08/17/2024 2:30 PM EST Office Visit [facility] MEDICINE [address] [place] [address] La Nena Alvarez MD [address] [place] [address] documented as of this encounter Visit Diagnoses Not on filedocumented in this encounter Additional Health Concerns Assessment Noted Time PHQ-9 Depression Total Score: 11 024 10:06 AM EDT documented as of this encounter Care Teams Cement Worker Relationship Specialty Start Date End Date La Nena Alvarez MD [address] [place] [address] PCP - General Family Medicine 11/04/23 01/23/24 Delaney Harvey MD [address] [place] [address] PCP - General Family Medicine 01/24/24 documented as of this encounter
--- OUTSIDE RECORDS SUMMARY | 2024-07-18 14:46 | XMS_ITS | Encounter Summary ---
Author Organization [facility] Address [address] [place] [address] Care Team Providers Care Medical Facilities Section Director Name Role Phone Delaney Harvey MD Primary Care Provider [phone] Reason for Visit * Reason Comments Med Refill Encounter Details Date Type Department Care Team ([facility] st Contact Info) Description 01/24/2024 Refill [facility] MEDICINE [address] [place] [address] Skylar Delgado MD [address] [place] [address] Social History Tobacco Use Types Packs/Day Years [...] Description 08/17/2024 2:30 PM EST Office Visit [facility] MEDICINE [address] [place] [address] La Nena Alvarez MD [address] [place] [address] documented as of this encounter Visit Diagnoses Not on filedocumented in this encounter Additional Health Concerns Assessment Noted Time PHQ-9 Depression Total Score: 11 024 10:06 AM EDT documented as of this encounter Care Teams Medical Facilities Section Director Relationship Specialty Start Date End Date Delaney Harvey MD [address] [place] [address] PCP - General Family Medicine 01/24/24 documented as of this encounter
--- OUTSIDE RECORDS SUMMARY | 2024-07-18 14:46 | XMS_ITS | Encounter Summary ---
Author Organization [employer] Address [address] [place] [address] Care Team Providers Care Video Production Coordinator Name Role Phone Delaney Harvey MD Primary Care Provider [phone] Reason for Visit * Reason Onset Date Comments rs oral surgery appt 06/18/2024 Encounter Details Date Type Department Care Team ([facility] st Contact Info) Description 06/18/2024 Telephone [facility] CHC ADULT DENTAL [address] [place], [place] [phone] Isai Perea, DMD [address] [place] [address] rs oral surgery appt Social History Tobacco Use Types Packs/Day Years [...] encounter Miscellaneous Notes * Telephone Encounter - Sherly Whitley - 06/18/2024 10:15 AM EST Patient cancelled last appt due to transportation. She states she is currently homeless living in [facility] and has arthritis with difficulty getting around. Patient informed that due to limited schedule Oral surgeon only here 1 time per month and difficult to determine when is the next day she may bescheduled. Informed patient that I would relay information to Oral crossing guard and go from there. Patient understood although asking for consideration DR documented in this encounter Plan of Treatment Upcoming Encounters Date Type Department Care Team (Late st Contact Info) Description 08/17/2024 2:30 PM EST Office Visit [facility] MEDICINE [address] [place] [address] La Nena Alvarez MD [address] [place] [address] documented as of this encounter Visit Diagnoses Not on filedocumented in this encounter Additional Health Concerns Assessment Noted Time PHQ-9 Depression Total Score: 11 024 10:06 AM EDT documented as of this encounter Care Teams Video Production Coordinator Relationship Specialty Start Date End Date Delaney Harvey MD [address] [place] [address] PCP - General Family Medicine 01/24/24 documented as of this encounter
--- OUTSIDE RECORDS SUMMARY | 2024-07-18 14:46 | XMS_ITS | Encounter Summary ---
Author Organization [employer] [facility] Address [address] [place] [address] Care Team Providers Care Cork Insulator Name Role Phone La Nena Alvarez MD Primary Care Provider [phone] Delaney Harvey MD Primary Care Provider [phone] Encounter Details Date Type Department Care Team (Late st Contact Info) Description 11/07/2023 Orders Only [facility] [address] [place] [address] Provider, MD Herbert Social History Tobacco Use [...] Description 08/17/2024 2:30 PM EST Office Visit [facility] MEDICINE [address] [place] [phone] La Nena Alvarez MD [address] [place] [phone] documented as of this encounter Procedures Procedure Name Priority Date/Time Associated Diagnosis Comments HCG, URINE, QUALITATIVE Routine 11/06/2023 2:30 PM EDT documented in this encounter Results * hCG, urine, qualitative (11/06/2023 2:30 PM EDT) Urine Urine specimen obtained by clean catch procedure / Unknown Historical Provider LAB URINE ORDERABLES Aparna l Result documented in this encounter Visit Diagnoses Not on filedocumented in this encounter Additional Health Concerns Assessment Noted Time PHQ-9 Depression Total Score: 11 024 10:06 AM EDT documented as of this encounter Care Teams Cork Insulator Relationship Specialty Start Date End Date La Nena Alvarez MD [address] [place] [address] [phone] PCP - General Family Medicine 11/04/23 01/23/24 Delaney Harvey MD [address] [place] [address] PCP - General Family Medicine 01/24/24 documented as of this encounter
--- OUTSIDE RECORDS SUMMARY | 2024-07-18 14:46 | XMS_ITS | Encounter Summary ---
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) Homelessness La Nena Alvarez MD [address] [place] [id number] Phone: tel: fax: [address] [address] Phone: tel: fax: Referral ID Status Reason Start Date Expiration Date V isits Requested Visits Authorized [id number] Closed Specialty Services Required 01/04/2024 01/03/2025 1 1 Encounter Details Date Type Department Care Team (Late st Contact Info) Description 01/04/2024 Orders Only [facility] [address] [place] [address] [phone] La Nena Alvarez MD [address] [place] [address] [phone] Major depressive disorder, recurrent, severe without psychotic features (CMS/HCC) (Primary Dx); Homelessness Social History Tobacco Use Types Packs/Day Years [...] Description 08/17/2024 2:30 PM EST Office Visit [facility] [address] [place] [address] La Nena Alvarez MD [address] [place] [address] Scheduled Referrals Name Type Priority Associated Diagnoses Order Schedule Referral to Care Management Outpatient Referral Routine Major depressive disorder, recurrent, severe without psychotic features (CMS/HCC) Homelessness Expected: 01/04/2024 (Approximate), Expires: 01/03/2025 documented as of this encounter Visit Diagnoses Diagnosis Major depressive disorder, recurrent, severe without psychotic features (CMS/HCC)- Primary Homelessness Lack of housing documented in this encounter Additional Health Concerns Assessment Noted Time PHQ-9 Depression Total Score: 11 10/17/ 024 10:06 AM EDT documented as of this encounter Care Teams Ash Handler Relationship Specialty Start Date End Date La Nena Alvarez MD [address] [place] [address] PCP - General Family Medicine 11/04/23 01/23/24 Delaney Harvey MD [address] [place] [address] PCP - General Family Medicine 01/24/24 documented as of this encounter
--- OUTSIDE RECORDS SUMMARY | 2024-07-18 14:47 | XMS_ITS ---
Author Organization [facility] Address [address] [place] [phone] Care Team Providers Care Fudge Candy Maker Name Role Phone [facility] Primary Care Provider Rosana Maisha Lewis Unavailable [phone] REASON FOR VISIT Dental - Initial Exam/xrays Encounters Encounter Location Date Provider Diagnosis [address] [address] 02/02/2023 Maisha Campos Plan Of Treatment No Information Progress Notes * Judie SANTOS MDOB :1995 (29 yo F)Acc No.[id number]:02/02/2023 Dental Notes Patient:?Ed SANTOSrizwana Alas Provider:Kindra Campos :1995???Age:27 Y???Sex:Female D ate:02/02/2023 Address:[address] [place], [place] [id number] Pcp:[facility] Subjective: * Chief Complaints: * ???1. Dental - Initial Exam/ xrays. * Medical History:? Objective: * Vitals:? Assessment: Plan: * Treatment: * Images: Billing Information: * Visit Code:? * Procedure Codes:? * Electronic signature of Maisha Campos on 07/18/2024 at 02:46 PM EST Sign off status: Pending * Provider:?Maisha Campos Date:?02/02/2023 Generated for Kadi rodríguez/Aimee/eTransmitting on:?07/18/2024 02:46 PM EST
== END 2024-07-18 13:41 | disposition home or self-care (01) ==
PROVIDERS: Visit Provider Physician Assistant
DX: M17.32 Unilateral post-traumatic osteoarthritis, left knee (principal)
CPT/HCPCS: 99213

== ENCOUNTER → 2024-07-18 12:38 | Outpatient (BNVA) | payer MEDICAID, SELFPAY | PROVIDERS: Visit Provider Physician Assistant | DX: M17.32 Unilateral post-traumatic osteoarthritis, left knee (principal) | CPT/HCPCS: 99212 ==